=== PATIENT | male | born 1940 | race Two or more races ===

== ENCOUNTER 2018-06-14 07:32 | Inpatient (IN) | payer MEDICARE ==
[~2018-06-14] VITALS: Ht 160 cm; Wt 44.0 kg
[2018-06-14] VITALS (29 sets, daily range): BP systolic 81–142; BP diastolic 32–83
[2018-06-14] MEDS ORDERED: ALBUTEROL FS 2.5 MG/3 ML VIAL.NEB ONE ×3 (07:57→10:55)
[2018-06-14 07:59] LABS: BASOPHILS # (AUTO) 0.1 /CMM (0.0-0.2); BASOPHILS % (AUTO) 1.2 % (0.0-2.0); EOSINOPHILS % (AUTO) 1.4 % (0.0-6.0); LYMPHOCYTES # (AUTO) 2.3 /CMM (0.8-4.8); LYMPHOCYTES % (AUTO) 50.9 % (20.0-44.0); MEAN CORPUSCULAR HGB CONC 29 g/dl (31.0-36.0); MEAN CORPUSCULAR VOLUME 67 fL (80-96); MONOCYTES # (AUTO) 0.4 /CMM (0.1-1.30); MONOCYTES % (AUTO) 9.4 % (2.0-12.0); NEUTROPHILS # (AUTO) 1.7 /CMM (1.8-8.9); NEUTROPHILS % (AUTO) 37.1 % (43.0-81.0); PLATELET COUNT (AUTO) 174 /CMM (150-450); WHITE BLOOD COUNT (AUTO) 4.6 K/uL (4.3-11.0)
[2018-06-14] MEDS ORDERED: ALBUTEROL FS 2.5 MG/3 ML VIAL.NEB CONTNEB ONE (08:00)
[2018-06-14] MEDS ORDERED: methylPREDNISolone SOD SUCC 125 MG/2ML VIAL IV ONE (08:00)
--- NOTE | 2018-06-14 08:00 | NUR ---
patient BIBRA from home, due to shortness of breath, on breathing treatment upon arrival, Connected to the monitor and pulse ox. Dr. Sherman at bedside for eval. RT on site. Kept comfortable, will continue to monitor accordingly.
[2018-06-14 08:03] LABS: RED BLOOD CELL COUNT(AUTO) 1.94 MIL/uL (4.5-6.0)
[2018-06-14 08:06] LABS: HEMOGLOBIN 3.8 g/dL (13.5-17.5)
[2018-06-14 08:07] LABS: HEMATOCRIT 13 % (39-51)
[2018-06-14 08:11] LABS: CALCIUM, SERUM 8.2 mg/dL (8.5-10.1); CARBON DIOXIDE 23 mmol/L (21-32); CHLORIDE 105 mmol/L (98-107); GLUCOSE 140 mg/dL (74-106); POTASSIUM 3.3 mmol/L (3.5-5.1); SODIUM SERUM 139 mmol/L (136-145); UREA NITROGEN, BLOOD 11 mg/dL (7-18)
[2018-06-14] MEDS ORDERED: methylPREDNISolone SOD SUCC 125 MG/2ML VIAL ONE (08:11)
[2018-06-14 08:18] LABS: B-TYPE NATRIURETIC PEPTIDE 1418 PG/ML (0-125)
[2018-06-14 08:26] LABS: BASOPHILS # (AUTO) 0.1 /CMM (0.0-0.2); BASOPHILS % (AUTO) 1.4 % (0.0-2.0); EOSINOPHILS % (AUTO) 1.3 % (0.0-6.0); LYMPHOCYTES # (AUTO) 2.6 /CMM (0.8-4.8); LYMPHOCYTES % (AUTO) 54.1 % (20.0-44.0); MEAN CORPUSCULAR HGB CONC 29 g/dl (31.0-36.0); MEAN CORPUSCULAR VOLUME 67 fL (80-96); MONOCYTES # (AUTO) 0.4 /CMM (0.1-1.30); MONOCYTES % (AUTO) 7.4 % (2.0-12.0); NEUTROPHILS # (AUTO) 1.7 /CMM (1.8-8.9); NEUTROPHILS % (AUTO) 35.8 % (43.0-81.0); PLATELET COUNT (AUTO) 172 /CMM (150-450); WHITE BLOOD COUNT (AUTO) 4.8 K/uL (4.3-11.0)
[2018-06-14 08:27] LABS: RED BLOOD CELL COUNT(AUTO) 1.86 MIL/uL (4.5-6.0)
[2018-06-14 08:28] LABS: HEMOGLOBIN 3.6 g/dL (13.5-17.5)
[2018-06-14 08:29] LABS: HEMATOCRIT 13 % (39-51)
[2018-06-14 09:14] LABS: EOSINOPHILS % (MANUAL) 5 % (0-4); LYMPHOCYTES % (MANUAL) 18 % (16-48); MONOCYTES % (MANUAL) 18 % (0-11.0); MYELOCYTES % 1 % (0-0); NEUTROPHILS % (MANUAL) 58 (42-76)
[2018-06-14 09:18] LABS: ABG BASE EXCESS -6.4 mmol/L; ABG PH 7.386 (7.350-7.450); ABG PO2 194.7 mmHg (75.0-100.0); AaDO2 54.9 mmHg; COHb 1.9 % (0.5-1.5); MetHb 0.1 % (0.0-1.5); PEEP,BG 15 cm H2O; SITE, ABG Right Radial; VENT MODE, BG BIPAP
[2018-06-14] MEDS ORDERED: PANTOPRAZOLE 40 MG VIAL IV SCH ×2 (09:30→17:00)
[2018-06-14] MEDS ORDERED: PANTOPRAZOLE 40 MG VIAL ONE ×2 (09:33→10:33)
[2018-06-14] MEDS ORDERED: ALBUTEROL FS 2.5 MG/3 ML VIAL.NEB NEB STA (10:22)
[2018-06-14] MEDS ORDERED: ONDANSETRON HCL/PF 4 MG/2 ML VIAL IVP PRN (10:30)
[2018-06-14] MEDS ORDERED: PANTOPRAZOLE 80 MG in IV NS 0.9% 500 ML IV PRN (10:30)
[2018-06-14] MEDS ORDERED: IPRATROPIUM NEB FS 0.5 MG/2.5 ML AMPUL.NEB NEB ONE (10:30)
[2018-06-14] MEDS ORDERED: PANTOPRAZOLE 80 MG in IV NS 0.9% 100 ML IV ONE (10:30)
[2018-06-14] MEDS ORDERED: ACETAMINOPHEN 650 MG/SUPP.RECT RC PRN (10:30)
[2018-06-14] MEDS: POTASSIUM CL. PREMIX PERIPHER. 50 ML IV SCH ×4 (10:30→15:25)
--- NOTE | 2018-06-14 10:45 | NUR ---
1 unit packed red blood cell started transfusing
[2018-06-14] MEDS ORDERED: IPRATROPIUM NEB FS 0.5 MG/2.5 ML AMPUL.NEB ONE (10:55)
--- NOTE | 2018-06-14 11:30 | NUR ---
wheeled patient going to ICU accompanied by RT, PT on bipap, blood 1 unit PRBC infusing while transferring. Connected to the monitor and pulse ox. Vital signs within normal limit. Afsatu RN at bedside and endorsed.
--- NOTE | 2018-06-14 11:35 | NUR ---
BARYTES GRINDERTELEVISION CABINET FINISHER NOTES PT RECEIVED ON BIPAP. RT AT BEDSIDE. SETTINGS VERIFIED AN CHECKED FOR ACCURACY. PT SATING 98%.PT ADMITTED BY COMMISSIONED SALES ASSOCIATE ROXIE SIMS FOR ACUTE RESPIRATORY DISTRESS ALONG WITH ACUTE GI BLEED. PT NOTED WITH BLACK TARRY STOOLS X2 IN ER. NO NOTED AT TIME OF ADMISSION TO FLOOR. VSS AT THIS TIME WITH THE EXCEPTION OF PT'S HR WHICH REMAINS ELEVATED IN THE 130S. PT NOTED TO BE SINUS TACH ON THE MONITOR. IV TO RIGHT WRIST NOTED OT BE PATENT AND INTACT. NO REDNESS OR SIGNS OF INFILTRATION NOTED. PT RECEIVING 1UNIT PRBC WHICH WAS STARTED IN ER. ORDERS NOTED TO TRANSFUSE ANOTHER UNIT AFTER. VITALS: 97.6 AXILIARY 108/52 BP 130 P 23 RR 0/10 PAIN PT BELONGINGS VERIFIED AND PLACED AT BEDSIDE. PT ORIENTED TO ROOM HOWEVER IS VERY RESTLESS AND WITH POOR CONCENTRATION. BED IN LOW LOCKED POSITION SIDE RAILS UP X3 CALL LIGHT WITHIN REACH. COMMISSIONED SALES ASSOCIATE MADE AWARE OF ADMISSION TO UNIT. WILL BEGIN ADMISSION PROCESS AND AWAIT FOR FURTHER ORDERS
--- NOTE | 2018-06-14 12:08 | NUR ---
PLACED INTO NASAL CANNULA @ 2 LPM O2 FLOW. BIPAP ON STD BY @ BEDSIDE. SPO2 98% Addendum: 06/14/18 at 1241 by HEATH STARR RT Amended: Links added.
--- NOTE | 2018-06-14 13:30 | NUR ---
BODY DIE MAKER NOTES: BLOOD TRANSFUSION (2) PT S/P 2 UNIT PRBC. NO TRANSFUSION REACTIONS NOTED. BLOOD RAPIDLY INFUSED PER PUBLISHING AGENT ORDER. PT SET TO RECEIVE ANOTHER RAPIDLY INFUSED 1 UNIT AFTER H/H IS REDRAWN
[2018-06-14] MEDS ORDERED: POTASSIUM CHLORIDE 10 MEQ/50 ML PREMIXED IVPB FOR PERIPHERAL LINE IV ONE (14:00)
[2018-06-14] MEDS ORDERED: NOREPINEPHRINE 8 MG in IV D5W 500 ML IV PRN (14:00)
[2018-06-14] MEDS ORDERED: IV NS 0.9% 1,000 ML BAG IV PRN (14:00)
[2018-06-14] MEDS ORDERED: IV NS 0.9% 1,000 ML IV PRN (14:00)
--- NOTE | 2018-06-14 14:13 | NUR ---
PT. PLACED INTO VENTI MASK @ 26% DUE TO MOUTH BREATHING. SPO2 96 - 98% PT. KEEPS ON MOVING Addendum: 06/14/18 at 1415 by HEATH STARR RT Amended: Links added.
[2018-06-14 14:20] LABS: HEMOGLOBIN 7.1 g/dL (13.5-17.5)
--- NOTE | 2018-06-14 14:30 | NUR ---
LAST TURNER NOTES: MD ROUNDING DR DEUTSCH AT BEDSIDE AND UPDATED ON PT'S RECENT LABS AND TARRY STOOLS WITNESS IN ER. PER MD, PT WILL BE SCHEDULED FOR EGD TOMORROW. FURTHER ORDERS OBTAINED TO BEGIN PT ON A CLEAR LIQUID DIET, KEEP NPO POST MIDNIGHT, AND Q 6HR H/H FOLLOWING TRANSFUSION
[2018-06-14] MEDS ORDERED: LORAZEPAM INJ 2 MG/ML VIAL IV ONE (15:30)
--- NOTE | 2018-06-14 15:30 | NUR ---
TELEPHONE CLAIMS REPRESENTATIVE NOTES: RESOLUTION MANAGER ROUNDING ROXIE SIMS AT BEDSIDE AND UPDATED ON PT'S CONDITION, CURRENT H/H POST 2UNITS OF PRBC, PT'S BEHAVIOR AND RECOMMENDATIONS BY DR DEUTSCH. RESOLUTION MANAGER ALSO MADE AWARE THAT SEVERAL ATTEMPTS WERE TAKEN TO INSERT NG TUBE HOWEVER PT WENT INTO REPARATORY DISTRESS, BECAME AGITATED AND REFUSING INSERTION. VERBAL ORDERS OBTAINED FOR: ATIVAN 0.5MG IV ONE TIME, DECREASE IV FLUIDS TO 100ML/HR, AND TRANSFUSE 1MORE UNIT OF PRBC WILL CARRY OUT ORDERS AND CONTINUE TO UPDATE RESOLUTION MANAGER
[2018-06-14] MEDS: IV NS 0.9% 1,000 ML IV SCH (15:58)
[2018-06-14] MEDS: PANTOPRAZOLE 40 MG VIAL IV SCH (16:01)
--- NOTE | 2018-06-14 17:10 | NUR ---
REHABILITATION THERAPY AIDE NOTES: CRITICAL LAB REPORTING 1710 PT HAS A CRITICAL TROPONIN OF 4.239 AND A CRITICAL LACTIC ACID OF 8.3. ROXIE SHEA NOTIFIED. TELEPHONE ORDERS TO STAT EKG, BOLUS OF 2L NS, CHANGE IV FLUID RATE TO 150ML/HR, URINE CX, AND A SET OF BLOOD CX. 1720 RESULTS OF EKG RELAYED TO BUTTONHOLER. NO STATES THAT SHE WILL CONSULT DR. HUITRON. PT DENIES ANY CHEST PAIN
[2018-06-14] MEDS ORDERED: IV NS 0.9% 2,000 ML IV ONE (17:30)
--- NOTE | 2018-06-14 17:51 | NUR ---
MARKETING SERVICES REP NOTES: CARDIO F/U CALL RECEIVED FROM PATRICIA FAUSTIN WHO SPOKE TO DR. HUITRON IN REGARDS TO EKG AND ELEVATED TROPONIN. PER AUDIOLOGIST, STATES THAT PT IS NOT A CANDIDATE FOR ANY PERCUTANEOUS PROCEDURES NOR A CANDIDATE FOR ANTICOAGULATION THERAPY DUE TO GI BLEED. NO NEW ORDERS GIVEN. PT DENIES ANY CHEST PAIN
--- NOTE | 2018-06-14 18:57 | NUR ---
GASTROINTESTINAL TECHNICIAN NOTES: EGD TELEPHONE CONSENT' PT SON CEDRIC CALLED IN REGARD TO EGD PROCEDURE PLANNED FOR TOMORROW. SON MQADE AWARE OF PT'S CURRENT CONDITION. TELEPHONE CONSENT OBTAINED FOR THE EGD PROCEDURE ITSELF HOWEVER NOT FOR THE ANESTHESIA. PT'S SON WISHES TO SPEAK TO ANESTHESIOLOGIST IN REGARDS TO PROCEDURE.
[2018-06-14 19:03] LABS: ABG BASE EXCESS -11.9 mmol/L; ABG OXYGEN SATURATION 71.9 % (92.0-98.5); ABG PCO2 41.8 mmHg (35.0-45.0); ABG PH 7.189 (7.350-7.450); ABG PO2 43.5 mmHg (75.0-100.0); AaDO2 106.8 mmHg; COHb 0.6 % (0.5-1.5); MetHb 0.8 % (0.0-1.5); O2Hb 70.9 % (94.0-97.0); SITE, ABG Right Radial; VENT MODE, BG VENTURI MASK 28%
--- NOTE | 2018-06-14 19:07 | NUR ---
RECEIVED PATIENT ON VENTURI MASK AT 28% ON 6L. PT LOOKED AGITATED AND HAD LABORED BREATHING. ABG WAS DONE AT THIS TIME AND POST ABG RESULTS PATIENT WAS PLACED BACK ON BIPAP 15/5 RATE 16 FIO2 60%. PT SP02 IS NOW AT 96%. MADELEINE STEEN NOTIFIED. WILL CONT TO MONITOR PT. Addendum: 06/14/18 at 1909 by BENY GARCIA RT Amended: Links added.
--- NOTE | 2018-06-14 19:09 | NUR ---
RN ADVISED THAT ECHO TEST CANNOT BE DONE AT THE MOMENT PATIENT IS RESTLESS. SOME PROCEDURE TO BE DONE ON PT PER RN.
--- NOTE | 2018-06-14 19:23 | NUR ---
TELEMETRY REGISTERED NURSE NOTES: MD NOTIFICATION (DR. DEGROOT) DR DEGROOT CALLED IN REGARDS TO ABG RESULTS AND PT'S INCREASED RESTLESSNESS. PER MD, "PT MAY BE IN FLUID OVERLOAD, ORDER 20MG OF LASIX IV, CONTINUE TO MONITOR HIM ON BIPAP, IF RESPIRATORY STATUS IMPROVES, THEN HE MAY BE TAKEN OFF AND PLACED ON NC"
[2018-06-14] MEDS ORDERED: FUROSEMIDE 20 MG/2 ML VIAL IV ONE (19:30)
--- NOTE | 2018-06-14 19:45 | NUR ---
HOT MILL OPERATOR NOTE RECEIVED PT AWAKE AND RESTLESS. NO C/O PAIN OR DISTRESS NOTED. ON BIPAP WITH SETTINGS WELL TOLERATED AND SATURATING 100%. HOB ELEVATED AND ON ASPIRATION PRECAUTIONS. BREATHING UNLABORED. TELE-ST 124. IVS IN PLACE,PATENT AND FLUSHING WELL. SOLOMON CATHETER IN PLACE AND DRAINING BY GRAVITY. WILL CONTINUE TO MONITOR.
--- NOTE | 2018-06-14 19:58 | NUR ---
FINANCIAL RETIREMENT PLAN SPECIALIST CLOSING NOTES PT PLACED BACK ON BIPAP (15/5, RATE 16, FIO2 100%). PT LESS RESTLESS AT THIS TIME AND SATANG AT 100%. 20MG OF LASIX GIVEN ORDERED. SECOND 1L BOLUS STOPPED DUE TO OVERLOAD AND LASIX ADMINISTRATION. PT RECEIVED A TOLUOL OF 3UNITS PRCS, AND TOLERATED WELL. NO TRANSFUSION REACTIONS NOTED. VSS AT THIS TIME. INVASIVE LINES REMAIN PATENT AND INTACT. PT REMAINS SINUS TACH ON MONITOR. NO COMPLAINTS OF CHEST PAIN, RECEIVING RN MADE AWARE OF PT'S SON WHO WOULD LIKE TO SPEAK TO ANESTHESIOLOGIST IN REGARDS TO EGD PROCEDURE ALONG WITH ORDERS FROM THE CLINICAL TRIALS NURSE. REPEAT H/H TAKEN AFTER THIRD INFUSION. RESULTS PENDING. ENDORSED TO NIGHTSHIFT RN FOR MELLISSA
[2018-06-14 20:37] LABS: BILIRUBIN,DIRECT 0.3 mg/dL (0.0-0.2); BILIRUBIN,TOTAL 0.7 mg/dL (0.2-1.0)
--- NOTE | 2018-06-14 21:00 | NUR ---
FIRER ELECTRIC LOCOMOTIVE NOTE LICENSED STAFF MFT RAFA MORA DNP AT BEDSIDE.
--- NOTE | 2018-06-14 23:15 | NUR ---
DUPLICATE MAKER NOTE NOTIFIED CONTINUOUS IMPROVEMENT DIRECTOR ABBY FOR CRITICAL LAB TROP 29.369 WITH NO NEW ORDERS AT THIS TIME. WILL CONTINUE TO MONITOR.
[2018-06-14 23:27] LABS: HEMOGLOBIN 8.8 g/dL (13.5-17.5)
[2018-06-15] VITALS (44 sets, daily range): BP systolic 93–138; BP diastolic 33–82
[2018-06-15] MEDS: IV NS 0.9% 1,000 ML IV SCH (03:00)
[2018-06-15 04:35] LABS: BASOPHILS % (AUTO) 0.1 % (0.0-2.0); HEMATOCRIT 27 % (39-51); HEMOGLOBIN 8.7 g/dL (13.5-17.5); LYMPHOCYTES # (AUTO) 0.2 /CMM (0.8-4.8); LYMPHOCYTES % (AUTO) 1.6 % (20.0-44.0); MEAN CORPUSCULAR HGB CONC 32 g/dl (31.0-36.0); MEAN CORPUSCULAR VOLUME 75 fL (80-96); MONOCYTES # (AUTO) 1.2 /CMM (0.1-1.30); MONOCYTES % (AUTO) 12.3 % (2.0-12.0); NEUTROPHILS # (AUTO) 8.3 /CMM (1.8-8.9); PLATELET COUNT (AUTO) 155 /CMM (150-450); RED BLOOD CELL COUNT(AUTO) 3.57 MIL/uL (4.5-6.0); WHITE BLOOD COUNT (AUTO) 9.7 K/uL (4.3-11.0)
[2018-06-15 04:53] LABS: ALANINE AMINOTRANSFERASE 13 U/L (12-78); ALBUMIN 2.9 g/dL (3.4-5.0); ALKALINE PHOSPHATASE 71 U/L (46-116); ASPARTATE AMINOTRANSFERASE 62 U/L (15-37); BILIRUBIN,TOTAL 0.6 mg/dL (0.2-1.0); CALCIUM, SERUM 7.2 mg/dL (8.5-10.1); CARBON DIOXIDE 22 mmol/L (21-32); CHLORIDE 108 mmol/L (98-107); GLUCOSE 292 mg/dL (74-106); PHOSPHORUS 2.7 mg/dL (2.5-4.9); POTASSIUM 3.9 mmol/L (3.5-5.1); SODIUM SERUM 140 mmol/L (136-145); UREA NITROGEN, BLOOD 16 mg/dL (7-18)
[2018-06-15 04:54] LABS: MAGNESIUM 1.8 mg/dL (1.8-2.4); TOTAL PROTEIN, SERUM 5.9 g/dL (6.4-8.2)
[2018-06-15 05:16] LABS: CHOLESTEROL 126 mg/dL (<200); HDL CHOLESTEROL 56 mg/dL (40-60); LDL 60 mg/dL (0-99); THYROID STIMULATING HORMONE 0.372 uIU/mL (0.358-3.74); TRIGLYCERIDES 59 mg/dL (30-150)
[2018-06-15] MEDS: FUROSEMIDE 40 MG/4 ML VIAL IV SCH ×3 (08:28→16:39)
[2018-06-15] MEDS: POTASSIUM CL. PREMIX PERIPHER. 50 ML IV SCH ×4 (08:29→11:59)
[2018-06-15] MEDS: PANTOPRAZOLE 40 MG VIAL IV SCH ×2 (08:29→16:39)
[2018-06-15 08:37] LABS: ABG BASE EXCESS -7.9 mmol/L; ABG OXYGEN SATURATION 92.1 % (92.0-98.5); ABG PCO2 35.1 mmHg (35.0-45.0); ABG PH 7.316 (7.350-7.450); ABG PO2 69.6 mmHg (75.0-100.0); AaDO2 261.9 mmHg; COHb 0.4 % (0.5-1.5); MetHb 0.6 % (0.0-1.5); O2Hb 91.2 % (94.0-97.0); SITE, ABG Right Brachial; VENT MODE, BG SIMPLE MASK
--- NOTE | 2018-06-15 09:06 | NUR ---
received pt from material handler 1st shift, s/p GI bleed, NSTEMI, alert, follows commands, ST, off of bipap, on simple mask now, sat well, lungs diminished, pulmonary vascular congestion on xray, no edema, NPO, f/c good output, v/s stable, no pain, one BM, no blood noted. Unstable for EGD today per pulmonology and cardio.
--- NOTE | 2018-06-15 09:24 | NUR ---
pt is back to bipap because of respiratory distress, Dr Butts at the bedside.
--- NOTE | 2018-06-15 11:11 | NUR ---
SW left a message for pt's son Mihai requesting a call back in regards to pt's home situation.
[2018-06-15] MEDS ORDERED: NOREPINEPHRINE 8 MG in IV D5W 500 ML IV PRN (11:30)
--- NOTE | 2018-06-15 12:44 | NUR ---
pt is resting in the bed, alert, follows commands, on bipap, sat well, v/s stable, no pain, pt turned and repositioned q2hrs.
[2018-06-15 13:00] LABS: HEMOGLOBIN 9.2 g/dL (13.5-17.5)
[2018-06-15] MEDS: SOD FERRIC GLUC 125 MG in IV NS 0.9% 100 ML IV SCH (13:28)
--- NOTE | 2018-06-15 17:01 | NUR ---
pt is resting in the bed, alert, follows commands, ST, good urine output, v/s stable, no pain, pt cleaned, changed and repositioned q2hrs.
--- NOTE | 2018-06-15 19:30 | NUR ---
CREDIT VERIFICATION CLERK NOTE RECEIVED PT ON SIMPLE MASK 8L OF O2 AND TOLERATING WELL. PT AWAKE AND MORE ALERT. FOLLOWS SIMPLE COMMANDS. NO C/O PAIN NOTED. BREATHING UNLABORED. HOB ELEVATED. TELE- SR 90'S. REMAINS NPO. NO ACTIVE BLEEDING NOTED. CALL LIGHT WITHIN REACH. WILL CONTINUE TO MONITOR.
--- NOTE | 2018-06-15 19:55 | NUR ---
RCVD PT ON 8L SIMPLE MASK. PT IS AWAKE AND ALERT. PLACED PT ON NOC BIPAP PER MD'S ORDER. BIPAP PLUGGED INTO RED OUTLET, ALARMS ON AND AUDIBLE. NO RESPIRATORY DISTRESS NOTED AT THIS TIME. WILL CONTINUE TO MONITOR THE PT.
--- NOTE | 2018-06-15 20:15 | NUR ---
OIL RIG DRILLER NOTE RT AT BEDSIDE. PT PLACED ON NOCTURNAL BIPAP. WILL MONITOR.
--- NOTE | 2018-06-15 20:40 | NUR ---
Met with patient at bedside and spoke with kareen Holm on the phone [phone]. Patient resides with handicapped Joann and son in a single level dwelling. Patient is not ambulatory, he is confined to wheelchair most of the time. He requires max to total assist with adl's. His son Mihai is the primary caregiver and IHSS provider. Patient is on oxygen at home but his portable O2 is empty and not working. Available DME: wheelchair, walker, home O2; he is currently on service with homehealth - son will bring in the [facility] contact info in am. Patient pcp is Dr. Cruz in [place], patient has Medicare/Medical per family. Discussed dc planning options, kareen Holm does not want SNF placement. he want to take patient home when discharge. Addendum: 06/15/18 at 204 by ANAMIKA PRICE RN Amended: Links added.
[2018-06-16] VITALS (39 sets, daily range): BP systolic 81–133; BP diastolic 31–68
[2018-06-16 04:57] LABS: BASOPHILS % (AUTO) 0.1 % (0.0-2.0); EOSINOPHILS % (AUTO) 0.2 % (0.0-6.0); HEMATOCRIT 27 % (39-51); HEMOGLOBIN 8.5 g/dL (13.5-17.5); LYMPHOCYTES # (AUTO) 0.2 /CMM (0.8-4.8); LYMPHOCYTES % (AUTO) 1.7 % (20.0-44.0); MEAN CORPUSCULAR HGB CONC 32 g/dl (31.0-36.0); MEAN CORPUSCULAR VOLUME 76 fL (80-96); MONOCYTES % (AUTO) 7.5 % (2.0-12.0); NEUTROPHILS # (AUTO) 12.7 /CMM (1.8-8.9); NEUTROPHILS % (AUTO) 90.5 % (43.0-81.0); PLATELET COUNT (AUTO) 139 /CMM (150-450); RED BLOOD CELL COUNT(AUTO) 3.54 MIL/uL (4.5-6.0)
[2018-06-16 05:11] LABS: ALANINE AMINOTRANSFERASE 14 U/L (12-78); ALBUMIN 2.9 g/dL (3.4-5.0); ALKALINE PHOSPHATASE 71 U/L (46-116); ASPARTATE AMINOTRANSFERASE 44 U/L (15-37); BILIRUBIN,TOTAL 0.6 mg/dL (0.2-1.0); CALCIUM, SERUM 7.5 mg/dL (8.5-10.1); CARBON DIOXIDE 31 mmol/L (21-32); CHLORIDE 107 mmol/L (98-107); CREATININE 0.8 mg/dL (0.6-1.3); GLUCOSE 77 mg/dL (74-106); PHOSPHORUS 2.2 mg/dL (2.5-4.9); SODIUM SERUM 142 mmol/L (136-145); UREA NITROGEN, BLOOD 14 mg/dL (7-18)
--- NOTE | 2018-06-16 06:50 | NUR ---
SPEECH LANGUAGE ASSISTANT NOTE PT REMAINED STABLE DURING SHIFT. NO ACUTE DISTRESS NOTED. REMAINS ON BIPAP AT THIS TIME. REPOSITIONED Q2H. ALL NEEDS ATTENDED TO PROMPTLY. KEPT CLEAN AND DRY. WILL ENDORSE TO NEXT SHIFT FOR CONTINUITY OF CARE.
[2018-06-16] MEDS ORDERED: POTASSIUM PHOSPHATE MM 15 MMOL in IV D5W 250 ML IV SCH (07:30)
[2018-06-16] MEDS: PANTOPRAZOLE 40 MG VIAL IV SCH ×2 (08:53→16:44)
[2018-06-16] MEDS: POTASSIUM PHOSPHATE MM 7.5 MMOL in IV D5W 100 ML IV SCH ×2 (08:54→12:11)
[2018-06-16] MEDS: FUROSEMIDE 40 MG/4 ML VIAL IV SCH ×2 (09:06→12:11)
[2018-06-16 09:54] LABS: ABG BASE EXCESS 3.9 mmol/L; ABG OXYGEN SATURATION 91.3 % (92.0-98.5); ABG PCO2 39.7 mmHg (35.0-45.0); ABG PH 7.465 (7.350-7.450); ABG PO2 61.1 mmHg (75.0-100.0); AaDO2 120.6 mmHg; COHb 0.3 % (0.5-1.5); MetHb 0.8 % (0.0-1.5); O2Hb 90.3 % (94.0-97.0); SITE, ABG Left Radial; VENT MODE, BG Nasal Cannula
--- NOTE | 2018-06-16 11:00 | NUR ---
RN NOTE DR MEDINA NOTIFIED ABOUT ABG RESULTS, NO NEW ORDERS. WILL MONITOR.
[2018-06-16 12:24] LABS: HEMOGLOBIN 8.7 g/dL (13.5-17.5)
--- NOTE | 2018-06-16 14:25 | NUR ---
RN NOTE SPOKE WITH DR DEUTSCH GI , AWARE ABOUT H/H TRENDS, PER DOCTOR NO EGD AT THIS TIME. OKAY TO START FEEDING THE PT. WILL START AT CLEAR LIQUID DIET AND ADVANCE TOLERATED.
[2018-06-16] MEDS: SOD FERRIC GLUC 125 MG in IV NS 0.9% 100 ML IV SCH (14:46)
--- NOTE | 2018-06-16 15:37 | NUR ---
RT RECD PT ON BIPAP, PLACED ON NC 3L AT 0830 LOC WELL. ABG DONE REMAINED ON NC THROUGHOUT SHIFT
--- NOTE | 2018-06-16 15:57 | NUR ---
RN NOTE PT HAD A CLEAR LIQUID DIET, DURING PO INTAKE STARTED TO HAVE HIGH HEART RATE UP TO 160S-170S, BUT PT DID NOT CO ABOUT CHEST PAIN OR SOB. WAS ABLE TO TOLERATE PO INTAKE WITHOUT PROBLEMS. AFTER MEAL INTAKE, PT REMAINED TACHYCARDIA, AFIB WITH RVR 150. BP 94/63MMHG, RR 26, SATURATION 95%. DR HUITRON CONTACTED AND GOT AN ORDER FOR AMIODARONE BOLUS AND DRIP PER PROTOCOL. Addendum: 06/16/18 at 1602 by EVI JARA RN WILL FOLLOW THROUGH AND MONITOR.
[2018-06-16] MEDS ORDERED: AMIODARONE 900 MG in IV D5W 482 ML IV PRN (16:00)
[2018-06-16] MEDS ORDERED: AMIODARONE 150 MG in IV D5W 100 ML IV ONE (16:00)
--- NOTE | 2018-06-16 19:30 | NUR ---
COMMAND AND CONTROL SPECIALIST: RECEIVED PT ALERT AND AWAKE. ABLE TO TALK AND MAKE NEEDS KNOWN. ON 3L 02 VIA NC WT NO ACUTE DISTRESS. NO C/O PAIN OR EVIDENCE OF DISCOMFORT. IN AND OUT OF A. FIB ON TELE. CONTINUE ON AMIODARONE AT 1MG/MIN. NO S/S OF IV INFILTRATION. AFEBRILE. BP IN LOW 90s. F/C PATENT AND INTACT DRAINING YELLOW URINE. HOB AT 30 DEGREES. BED LOCKED, LOW POSITION AND SR UP X2. CALL LIGHT KEPT WITHIN REACH. WILL CONTINUE TO MONITOR.
--- NOTE | 2018-06-16 20:03 | NUR ---
RN NOTE PT HAD AMIODARONE DRIP , HR LOWERED TO 108, SBP SUSTAINED IN 90S. MEDS GIVEN PRESCRIBED, NEED MET, SAFETY MEASURES IN PLACE, WILL ENDORSE TO OTR VAN CDL TRUCK DRIVER.
--- NOTE | 2018-06-16 22:45 | NUR ---
CIRCUIT BOARD ASSEMBLER: AMIODARONE DRIP CHANGED RATE TO 0.5MG/MIN.
[2018-06-17] VITALS (25 sets, daily range): BP systolic 85–108; BP diastolic 44–74
--- NOTE | 2018-06-17 00:40 | NUR ---
BRUSH FINISHER: PT CONVERTED TO SR WT OCCASIONAL PACs. WILL CONTINUE TO MONITOR.
[2018-06-17 05:13] LABS: HEMATOCRIT 27 % (39-51); HEMOGLOBIN 8.6 g/dL (13.5-17.5); MEAN CORPUSCULAR HGB CONC 32 g/dl (31.0-36.0); MEAN CORPUSCULAR VOLUME 75 fL (80-96); PLATELET COUNT (AUTO) 148 /CMM (150-450); RED BLOOD CELL COUNT(AUTO) 3.58 MIL/uL (4.5-6.0)
[2018-06-17 05:24] LABS: ALANINE AMINOTRANSFERASE 21 U/L (12-78); ALBUMIN 2.8 g/dL (3.4-5.0); ALKALINE PHOSPHATASE 65 U/L (46-116); ASPARTATE AMINOTRANSFERASE 34 U/L (15-37); BILIRUBIN,TOTAL 0.6 mg/dL (0.2-1.0); CALCIUM, SERUM 7.6 mg/dL (8.5-10.1); CARBON DIOXIDE 33 mmol/L (21-32); CHLORIDE 101 mmol/L (98-107); CREATININE 0.8 mg/dL (0.6-1.3); GLUCOSE 86 mg/dL (74-106); PHOSPHORUS 1.5 mg/dL (2.5-4.9); POTASSIUM 3.1 mmol/L (3.5-5.1); SODIUM SERUM 138 mmol/L (136-145); TOTAL PROTEIN, SERUM 5.8 g/dL (6.4-8.2); UREA NITROGEN, BLOOD 12 mg/dL (7-18)
--- NOTE | 2018-06-17 05:55 | NUR ---
SOCIAL PSYCHOLOGIST: CONTINUE ON AMIODARONE DRIP AT 0.5 MG/MIN WT SR ON MARITIME PILOT. NO ACTIVE BLEEDING DURING THE SHIFT. REMAINED ALERT AND AWAKE. ABLE TO MAKE NEEDS KNOWN. DESATURATES IN THE 80s WHEN OFF NASAL CANNULA. PT TEACHING DONE TO KEEP NC ON AND VERBALIZED UNDERSTANDING. SAFETY PRECAUTION NOTED. TROPONIN TRENDING DOWN TO 5.61 FROM 11.575.
[2018-06-17 05:59] LABS: EOSINOPHILS % (MANUAL) 1 % (0-4); LYMPHOCYTES % (MANUAL) 11 % (16-48); MONOCYTES % (MANUAL) 8 % (0-11.0); NEUTROPHILS % (MANUAL) 80 (42-76)
--- NOTE | 2018-06-17 07:40 | NUR ---
PROTOTYPE MACHINE OPERATOR: pt.is A/Ox2, rest, no c/o now, SR now, on Amiodarone 0.5 gtt now, SBP around 90 by report, no bleeding by report, on 3L n/c, O2sat. over 94%, no SOB, R.f/a PIVL: painful, unable to NS flush, order for sputum/cx, notified RT, was in room/updated/see new orders, incl. K, Phos replacement
[2018-06-17] MEDS: FUROSEMIDE 40 MG/4 ML VIAL IV SCH ×2 (08:18→12:54)
[2018-06-17] MEDS: PANTOPRAZOLE 40 MG VIAL IV SCH ×2 (08:18→17:01)
[2018-06-17] MEDS: POTASSIUM CHLORIDE 20 MEQ TAB.PRT.SR PO SCH ×3 (08:19→10:25)
[2018-06-17] MEDS: NEUTRA PHOS 1 POWD.PACKET PO SCH ×2 (08:19→16:29)
--- NOTE | 2018-06-17 11:19 | NUR ---
HIGH SCHOOL CHEMISTRY TEACHER: continue Amiodarone 0.5 mg/m gtt until 16.45, spoke with pharmacy, SR, c/o L.foot pain 3-06/16, reapplied DVT pressure e.stockings, assessed for pain real location, no calfs/legs pain by Soumya calvin, pt.confirmed L.foot pain and R.foot little pain, pt.is ok to continue DVT prev.stockings, will notify Adithya KINNEYPIVL dressing re endorsed, ok for ND flushing now, no pain, no infiltrated
--- NOTE | 2018-06-17 11:20 | NUR ---
RADIOLOGIST PHYSICIAN: updated with all above, ok to transfer pt.
--- NOTE | 2018-06-17 12:20 | NUR ---
NEONATOLOGIST: PATRICIA Williamson is in room, updated with pt.current condition, VS, I/O, Amiodarone gtt, c/o, labs, meds, ok to transfer pt after drip
[2018-06-17 12:57] LABS: HEMOGLOBIN 9.3 g/dL (13.5-17.5)
--- NOTE | 2018-06-17 13:10 | NUR ---
SECURITY TEST ENGINEER: is in room, updated with pt.current condition, VS, meds, labs, H/H, I/O, no bloody stool by report, ok to advance diet to soft mech diet
[2018-06-17] MEDS: SOD FERRIC GLUC 125 MG in IV NS 0.9% 100 ML IV SCH (14:25)
[2018-06-17] MEDS: AMIODARONE HCL 200 MG TABLET PO SCH (17:02)
--- NOTE | 2018-06-17 18:19 | NUR ---
TRANSMISSION ENGINEER: pt.is A/Ox3, no pain, no c/o, SR, Amio gtt done, SBP 90-95, O2sat. over 94%, all PM,skin care done
--- NOTE | 2018-06-17 18:52 | NUR ---
PT AWAKE AND ALERT TOLERATES ON NASAL CANNULA. PT STATED THAT HE HAS NO PROBLEM WITH BREATHING AND DOES NOT NEED BIPAP.
[2018-06-18] VITALS (9 sets, daily range): BP systolic 90–120; BP diastolic 50–86
[2018-06-18 04:38] LABS: BASOPHILS # (AUTO) 0.1 /CMM (0.0-0.2); BASOPHILS % (AUTO) 0.9 % (0.0-2.0); EOSINOPHILS % (AUTO) 1.6 % (0.0-6.0); HEMATOCRIT 30 % (39-51); HEMOGLOBIN 9.5 g/dL (13.5-17.5); LYMPHOCYTES # (AUTO) 1.4 /CMM (0.8-4.8); LYMPHOCYTES % (AUTO) 13.7 % (20.0-44.0); MEAN CORPUSCULAR HGB CONC 32 g/dl (31.0-36.0); MEAN CORPUSCULAR VOLUME 77 fL (80-96); MONOCYTES # (AUTO) 1.1 /CMM (0.1-1.30); MONOCYTES % (AUTO) 10.7 % (2.0-12.0); NEUTROPHILS # (AUTO) 7.5 /CMM (1.8-8.9); NEUTROPHILS % (AUTO) 73.1 % (43.0-81.0); PLATELET COUNT (AUTO) 167 /CMM (150-450); RED BLOOD CELL COUNT(AUTO) 3.88 MIL/uL (4.5-6.0); WHITE BLOOD COUNT (AUTO) 10.3 K/uL (4.3-11.0)
[2018-06-18 04:48] LABS: ALANINE AMINOTRANSFERASE 20 U/L (12-78); ALBUMIN 2.9 g/dL (3.4-5.0); ALKALINE PHOSPHATASE 71 U/L (46-116); ASPARTATE AMINOTRANSFERASE 26 U/L (15-37); BILIRUBIN,TOTAL 0.5 mg/dL (0.2-1.0); CALCIUM, SERUM 7.8 mg/dL (8.5-10.1); CARBON DIOXIDE 33 mmol/L (21-32); CHLORIDE 100 mmol/L (98-107); CREATININE 0.9 mg/dL (0.6-1.3); GLUCOSE 92 mg/dL (74-106); MAGNESIUM 1.7 mg/dL (1.8-2.4); PHOSPHORUS 2.3 mg/dL (2.5-4.9); POTASSIUM 3.4 mmol/L (3.5-5.1); SODIUM SERUM 137 mmol/L (136-145); TOTAL PROTEIN, SERUM 6.2 g/dL (6.4-8.2); UREA NITROGEN, BLOOD 9 mg/dL (7-18)
--- NOTE | 2018-06-18 05:06 | NUR ---
pt is alert and oriented times three sl anxious at times overall appearances fair no skin break down has a todd cath patent and draining qs cl danielle urine was incont times one of mod.size formed stool has a left ac hl #20 no ivf is on 3L via nc sating 95-99% lungs sound sl rhonchi does cough but no sputum noted is sr on the monitor pt is being transfer to room 107 report was given to Marija SALVADOR all questions answered pt conditon remains stable
--- NOTE | 2018-06-18 06:09 | NUR ---
pt was transfer to [facility] without incident and pt was given all his personal belonging given to pt
[2018-06-18] MEDS: NEUTRA PHOS 1 POWD.PACKET PO SCH ×2 (08:40→16:22)
[2018-06-18] MEDS: Magnesium 1GM/D5W 100ML PREMIX 100 ML IV SCH ×2 (08:40→09:44)
[2018-06-18] MEDS: PANTOPRAZOLE 40 MG VIAL IV SCH ×2 (08:41→16:22)
[2018-06-18] MEDS: AMIODARONE HCL 200 MG TABLET PO SCH ×2 (08:41→16:22)
[2018-06-18] MEDS ORDERED: POTASSIUM CHLORIDE 20 MEQ TAB.PRT.SR PO SCH (09:00)
[2018-06-18] MEDS ORDERED: IOHEXOL-350 100 ML VIAL IV ONE (11:48)
[2018-06-18] MEDS ORDERED: IV NS 0.9% 250 ML IV ONE (11:48)
[2018-06-18] MEDS ORDERED: CT SWABBABLE VALVE TRANS SET 1 EA INFUS.SET MC ONE (11:48)
[2018-06-18] MEDS ORDERED: METOPROLOL TARTRATE INJ 5 MG/5 ML AMPUL ONE ×2 (11:49→12:25)
[2018-06-18 12:01] LABS: HEMOGLOBIN 9.2 g/dL (13.5-17.5)
--- NOTE | 2018-06-18 12:51 | NUR ---
Pt back to his room s/p CTA.
[2018-06-18] MEDS: SOD FERRIC GLUC 125 MG in IV NS 0.9% 100 ML IV SCH (14:22)
--- NOTE | 2018-06-18 18:45 | NUR ---
RN CLOSING NOTES: No significant changes noted w/in shift. Pt remains A/O x 2-3, denies any pain/ discomfort. No SOB while on NC at 3lpm but w/ strong productive cough. IV line access kept patent & intact w/ no s/sx of infection/infiltration noted. FC kept patent & intact draining to BSB. Pt independent w/ bed mobility. Safety precaution kept in place at all times w/ bed in lowest & locked pos. Call light placed w/in reach. Will endorse to PM RN for MELLISSA.
--- NOTE | 2018-06-18 19:15 | NUR ---
MS RN OPENING NOTES PATIENT ALERT AND ORIENTED X 2-3. DENIES ANY PAIN OR DISCOMFORT AT THIS TIME. ON NC AT 3LPM TOLERATING WELL, NO SOB NOTED, RR EVEN AND UNLABORED. IV LINE LEFT AC 20G TKO RUNNING AT 3ML/HR, NO SIGN OF INFILTRATION NOTED, SITE CDI. SOLOMON CATH DRAINING WELL TO BSB. PT INDEPENDENT WITH BED MOBILITY. SAFETY PRECAUTIONS IN PLACE. BED LOCKED AND IN LOWEST POSITION, CALL LIGHT WITHIN REACH, BED ALARM ON. WILL CONT TO MONITOR PATIENT.
--- NOTE | 2018-06-19 03:30 | NUR ---
MS RN NOTES PATIENT REFUSED DVT PUMPS DESPITE EDUCATION GIVEN REGARDING DVT PUMPS. PATIENT STATED "THEY ARE UNCOMFORTABLE AND WON'T MAKE ME SLEEP" WILL REMOVE DVT PUMPS FOR NOW AND WILL ENDORSE TO AM NURSE.
[2018-06-19 04:00] VITALS: BP 92/48
[2018-06-19 04:01] VITALS: BP 92/48
[2018-06-19 06:30] LABS: CALCIUM, SERUM 8.1 mg/dL (8.5-10.1); CARBON DIOXIDE 28 mmol/L (21-32); CHLORIDE 101 mmol/L (98-107); CREATININE 0.8 mg/dL (0.6-1.3); GLUCOSE 89 mg/dL (74-106); POTASSIUM 4.5 mmol/L (3.5-5.1); SODIUM SERUM 136 mmol/L (136-145); UREA NITROGEN, BLOOD 10 mg/dL (7-18)
--- NOTE | 2018-06-19 06:44 | NUR ---
MS RN CLOSING NOTES PATIENT SLEEPING IN BED, BUT EASY TO AROUSE. ALERT AND ORIENTED X 2-3. DENIES ANY PAIN OR DISCOMFORT AT THIS TIME. ON NC AT 3LPM TOLERATING WELL, NO SOB NOTED, RR EVEN AND UNLABORED. IV LINE LEFT AC 20G NS RUNNING AT 3ML/HR TKO, NO SIGN OF INFILTRATION NOTED, SITE CDI. SOLOMON CATH DRAINING WELL TO BSB. PT INDEPENDENT WITH BED MOBILITY. SAFETY PRECAUTIONS IN PLACE. BED LOCKED AND IN LOWEST POSITION, CALL LIGHT WITHIN REACH, BED ALARM ON. NO ACUTE CHANGES THROUGHOUT SHIFT. WILL ENDORSE TO AM RN FOR MELLISSA.
[2018-06-19 08:00] VITALS: BP 98/50
--- NOTE | 2018-06-19 08:00 | NUR ---
MS1/RN AM SHIFT INITIAL NOTES RECEIVED PT ASLEEP IN BED, EASILY AROUSEABLE, PT A/O X 4, DENIES ANY SYMPTOMS AT THIS TIME. NO ACUTE RESPIRATORY DISTRESS NOTED. ON 3L O2 VIA N/C SATURATING @ 91%, LUNG SOUNDS DIMINISHED, RESPIRATIONS EVEN AND UNLABORED. IV SITE ON TKO, PATENT, NO S/S OF INFECTION. PT IS COMFORTABLE AT THIS TIME, SCHEDULED AM MEDS TO BE GIVEN. CL WITHIN REACHED AND SAFETY MAINTAINED. ON GOING MONITORING.
[2018-06-19 08:08] LABS: BASOPHILS # (AUTO) 0.1 /CMM (0.0-0.2); BASOPHILS % (AUTO) 0.8 % (0.0-2.0); EOSINOPHILS % (AUTO) 2.8 % (0.0-6.0); HEMATOCRIT 29 % (39-51); LYMPHOCYTES # (AUTO) 0.6 /CMM (0.8-4.8); LYMPHOCYTES % (AUTO) 7.5 % (20.0-44.0); MEAN CORPUSCULAR HGB CONC 31 g/dl (31.0-36.0); MEAN CORPUSCULAR VOLUME 78 fL (80-96); MONOCYTES # (AUTO) 1.2 /CMM (0.1-1.30); MONOCYTES % (AUTO) 16.7 % (2.0-12.0); NEUTROPHILS # (AUTO) 5.4 /CMM (1.8-8.9); NEUTROPHILS % (AUTO) 72.2 % (43.0-81.0); PLATELET COUNT (AUTO) 158 /CMM (150-450); RED BLOOD CELL COUNT(AUTO) 3.69 MIL/uL (4.5-6.0); WHITE BLOOD COUNT (AUTO) 7.5 K/uL (4.3-11.0)
[2018-06-19] MEDS: PANTOPRAZOLE 40 MG VIAL IV SCH ×2 (08:26→16:58)
[2018-06-19] MEDS: AMIODARONE HCL 200 MG TABLET PO SCH ×2 (08:27→16:59)
--- NOTE | 2018-06-19 09:19 | NUR ---
WOUND CARE CONSULT: PT PRESENTS WITH LEFT HEEL CALLUS AND LEFT GREAT TOENAIL DEFORMITY, PRESENT ON ADMISSION. DPM CONSULT WAS CALLED BY PHYSICIAN. PT NOTED TO HAVE VERY BONY SACRAL AREA. RECOMMENDATIONS MADE FOR SKIN PROTECTION. DISCUSSED WITH NURSING STAFF. WILL SEE PRN. CURRENT BRISSA SCORE IS 16. MD IN AGREEMENT WITH PLAN OF CARE. Addendum: 06/19/18 at 0921 by HARIS LEES WNDNU Amended: Links added.
[2018-06-19] MEDS ORDERED: Z GUARD REMEDY 2 OZ OINT TP PRN (09:30)
[2018-06-19 12:27] LABS: HEMOGLOBIN 9.6 g/dL (13.5-17.5)
[2018-06-19] MEDS: Z GUARD REMEDY 2 OZ OINT TP SCH (12:56)
[2018-06-19] MEDS: ENSURE ENLIVE 237 ML LIQUID (VANILLA) PO SCH ×3 (13:00→16:59)
[2018-06-19] MEDS: SOD FERRIC GLUC 125 MG in IV NS 0.9% 100 ML IV SCH (14:19)
--- NOTE | 2018-06-19 15:00 | NUR ---
MS1/RN ROUNDS - PATRICIA ALVARADO UPDATED PT'S CONDITION. PT SEEN & EXAMINED BY PATRICIA ALVARADO AT BEDSIDE, NOTED PT GASPING FOR AIR, IMMEDIATELY CALLED RT. O2 VIA N/C INCREASED, ON GOING MONITORING. Addendum: 06/19/18 at 1529 by HAMIDA GUTIERREZ RN ADDENDUM: PT PLACED ON BI-PAP, SATURATING @ 100%, PT'S ACUITY UPGRADED TO TELEMETRY.
--- NOTE | 2018-06-19 15:19 | NUR ---
RT NOTE PT PLACED ON BIPAP PER JENNY TIE IN HAND ORDER. PT AWAKE AND ALERT. NO DISTRESS NOTED AT MOMENT. Addendum: 06/19/18 at 1521 by CRISTOFER SIDDIQI RT Amended: Links added.
[2018-06-19 16:00] VITALS: BP 107/53
--- NOTE | 2018-06-19 19:28 | NUR ---
TELE1/RN AM SHIFT END NOTES PT ON BI-PAP, BREATHING MUCH BETTER, SATURATING WELL, ALL NEEDS MET. PT ENDORSED TO PM NURSE TO CONTINUE CARE. CL WITHIN REACHED AND SAFETY MAINTAINED.
--- NOTE | 2018-06-19 19:42 | NUR ---
CRAP GAME BOX PERSON NOTE: RECEIVED PT ON BED ALERT AND ORIENTED X3, VERBALLY RESPONSIVE. NO APPARENT DISTRESS NOTED. DENIES PAIN AND DISCOMFORT AT THIS TIME. ON 3LPM NASAL CANNULA, NO SOB NOTED. HEAD OF BED KEPT ELEVATED. SINUS RHYTHM ON TELE MONITOR HR 82BPM. LEFT ANTECUBITAL #20 INTACT AND PATENT, FLUSHING WELL. NO SIGNS/SYMPTOMS OF INFILTRATION NOTED. SOLOMON CATH INTACT, DRAINING WELL. KEPT CLEAN, DRY AND COMFORTABLE. SAFETY AND FALL PRECAUTIONS OBSERVED AND MAINTAINED. WILL CONTINUE TO MONITOR PT.
[2018-06-19 20:00] VITALS: BP 112/42
--- NOTE | 2018-06-19 21:46 | NUR ---
RECEIVED PT ON 3L NC. AWAKE AND ALERT. O2 SAT 98%. NO DISTRESS. BIPAP S/B. WILL CONTINUE TO MONITOR.
[2018-06-20] VITALS: BP 101/53
[2018-06-20 04:00] VITALS: BP 116/57
--- NOTE | 2018-06-20 06:45 | NUR ---
INTELLIGENCE OPERATIONS SPECIALIST NOTE: NO CHANGES NOTED THROUGHOUT THE SHIFT. NO APPARENT DISTRESS NOTED. DENIES PAIN AND DISCOMFORT AT THIS TIME. ON 3LPM NASAL CANNULA, NO SOB NOTED. SATURATING WELL ON NASAL CANNULA. SINUS RHYTHM ON TELE MONITOR HR 77BPM. SOLOMON CATH INTACT AND PATENT, DRAINED 600ML OF URINE OUTPUT. KEPT CLEAN, DRY AND COMFORTABLE. SAFETY AND FALL PRECAUTIONS OBSERVED AND MAINTAINED. WILL ENDORSE TO DAY SHIFT RN FOR CONTINUITY OF CARE
[2018-06-20 08:00] VITALS: BP 111/54
[2018-06-20] MEDS: PANTOPRAZOLE 40 MG VIAL IV SCH (08:00)
[2018-06-20] MEDS: AMIODARONE HCL 200 MG TABLET PO SCH (08:00)
--- NOTE | 2018-06-20 08:00 | NUR ---
TELE1/RN AM SHIFT INITIAL NOTES RECEIVED PT ASLEEP IN BED, EASILY AROUSEABLE, PT A/O X 4, DENIES ANY SYMPTOMS OF RESPIRATORY DISTRESS AT THIS TIME. ON 3L O2 VIA N/C SATURATING @ 94%, LUNG SOUNDS DIMINISHED, RESPIRATIONS EVEN AND UNLABORED. ON TELE MONITORING, SINUS RHYTHM, HR 74. IV SITE ON TKO, PATENT, NO S/S OF INFECTION. SOLOMON CATHETER INTACT WITH YELLOW URINE OUTPUT. PT IS COMFORTABLE AT THIS TIME, SCHEDULED AM MEDS TO BE GIVEN. CL WITHIN REACHED AND SAFETY MAINTAINED. ON GOING MONITORING.
[2018-06-20] MEDS: Z GUARD REMEDY 2 OZ OINT TP SCH (08:01)
[2018-06-20] MEDS: ENSURE ENLIVE 237 ML LIQUID (VANILLA) PO SCH ×3 (08:01→16:39)
--- NOTE | 2018-06-20 09:22 | NUR ---
TELE1/RN ROUNDS - DR. HUITRON PT SEEN & EXAMINED BY DR. HUITRON. NO NEW ORDERS RECEIVED AT THIS TIME. MONITORING CONTINUED.
--- NOTE | 2018-06-20 09:25 | NUR ---
TELE1/RN ROUNDS - DR. MEDINA UPDATED PT'S CONDITION. PT SEEN & EXAMINED BY DR. MEDINA. NO NEW ORDERS RECEIVED AT THIS TIME. MONITORING CONTINUED.
--- NOTE | 2018-06-20 10:00 | NUR ---
TELE1/RN ROUNDS - DR. ZENDEJAS FOLLOW-UP ON THE CONSULT MADE ON THE PT. NOTIFIED THAT PT IS STILL EXPERIENCING PAIN ON HIS LEFT FOOT. MD WENT TO PT'S ROOM AND RE-EXAMINED PT'S FOOT, REMOVED CALLUS AND WILL ORDER X-RAY OF FOOT TO VERIFY ANY FRACTURES. NOTED. MONITORING CONTINUED.
--- NOTE | 2018-06-20 10:59 | NUR ---
TELE1/RN CONSENT - THORACENTESIS CONSENT FOR THORACENTESIS OBTAINED FROM THE PT, NOTIFIED ULTRASOUND OF THE CONSENT, ORDERED STAT COAGULATION PANEL PER TECH REQUEST.
[2018-06-20] MEDS: FUROSEMIDE 40 MG/4 ML VIAL IV SCH ×2 (11:10→16:38)
[2018-06-20 12:00] VITALS: BP 126/61
--- NOTE | 2018-06-20 12:07 | NUR ---
AT 12 PM NO LAB WORK DONE, CALLED LAB FLOOR AND THEY SAID THAT THE PATIENT IS HARD STICK AND WILL SEND SOMEONE ELSE TO DRAW BLOOD.
[2018-06-20 13:17] LABS: HEMOGLOBIN 10.7 g/dL (13.5-17.5)
--- NOTE | 2018-06-20 14:15 | NUR ---
ALESIA/RN LEFT LUNG THORACENTESIS DR. SERRANO PERFORMED ULTRASOUND GUIDED LEFT LUNG THORACENTESIS WITH WOMEN'S APPAREL SALESPERSON ASSISTING. REMOVED 1.1 PLEURAL FLUID. PT TOLERATED PROCEDURE. SPECIMEN SENT TO LAB FOR ANALYSIS. RADIOLOGY NOTIFIED OF POST PROCEDURE. ON GOING MONITORING. Addendum: 06/20/18 at 1931 by HAMIDA GUTIERREZ RN REMOVED 1.1 L OF PLEURAL FLUID.
[2018-06-20 16:00] VITALS: BP 116/57
--- NOTE | 2018-06-20 17:40 | NUR ---
MS1/RN AFTERNOON ROUNDS NO ACUTE RESPIRATORY DISTRESS NOTED. PM CARE PROVIDED. ON GOING MONITORING.
--- NOTE | 2018-06-20 19:10 | NUR ---
MS/RN INITIAL NOTES RECEIVED PT IN BED, A/OX3. ON 3L O2 VIA NC, NO RESPIRATORY DISTRESS AT THIS TIME. NO C/O PAIN. PT IS S/P THORACENTESIS OF LEFT LUNG, NO SIGNS OF BLEEDING ON SITE. FC INTACT AND IN PLACED. WITH ONGOING IVF NS AT TKO ON LEFT AC G18. R WRIST G20 HEPLOCK PATENT, C/D/I. SAFETY MEASURES IN PLACED. CALL LIGHT WITHIN EASY REACH. WILL CONT TO MONITOR
--- NOTE | 2018-06-20 19:31 | NUR ---
MS1/RN AM SHIFT END NOTES ALL NEEDS MET. NO ACUTE CHANGE OF CONDITION NOTED DURING THE SHIFT. PT ENDORSED TO PM NURSE TO CONTINUE CARE. CL WITHIN REACHED AND SAFETY MAINTAINED.
[2018-06-20 20:00] VITALS: BP 107/57
[2018-06-21 04:00] VITALS: BP 115/63
--- NOTE | 2018-06-21 06:55 | NUR ---
RN NOTES PT IN STABLE CONDITION, NO ACUTE CHANGES THROUGHOUT SHIFT. ALL NEEDS ANTICIPATED. SAFETY MEASURES OBSERVED AT ALL TIMES. ENDORSED TO AM RN FOR MELLISSA
[2018-06-21 08:00] VITALS: BP 98/50
[2018-06-21] MEDS: Z GUARD REMEDY 2 OZ OINT TP SCH (09:03)
[2018-06-21] MEDS: ENSURE ENLIVE 237 ML LIQUID (VANILLA) PO SCH ×3 (09:03→17:06)
[2018-06-21] MEDS: PANTOPRAZOLE 40 MG/PACK PACK NG SCH (09:05)
[2018-06-21] MEDS: AMIODARONE HCL 200 MG TABLET PO SCH (09:06)
[2018-06-21 12:53] LABS: HEMOGLOBIN 10.3 g/dL (13.5-17.5)
--- NOTE | 2018-06-21 13:07 | NUR ---
RECEIVED ORDER FOR D/C TO HOME. CALLED [facility] TO ARRANGE TRANSPORTATION, NO ANSWER. LEFT MESSAGE. WILL TRY AGAIN LATER.
[2018-06-21 13:35] LABS: ABG BASE EXCESS 11.3 mmol/L; ABG OXYGEN SATURATION 92.1 % (92.0-98.5); ABG PCO2 46.2 mmHg (35.0-45.0); ABG PH 7.505 (7.350-7.450); ABG PO2 62.4 mmHg (75.0-100.0); COHb 0.9 % (0.5-1.5); MetHb 0.5 % (0.0-1.5); O2Hb 90.8 % (94.0-97.0); SITE, ABG Right Brachial; VENT MODE, BG room air
--- NOTE | 2018-06-21 13:37 | NUR ---
ROOM AIR 86%,CM NOTIFIED FOR OXYGEN USE.
--- NOTE | 2018-06-21 13:38 | NUR ---
PT. DESATURATES TO 86% ON ROOM AIR AT REST,PLACED ON O2 AND SAT IMPROVES TO 94%,MD AWARE.
--- NOTE | 2018-06-21 13:41 | NUR ---
ALSO CM MADE AWARE PT. SON UNABLE TO REACH.
[2018-06-21 16:00] VITALS: BP 117/63
--- NOTE | 2018-06-21 16:04 | NUR ---
FF. UP WITH [employer] STILL PENDING DISCHARGE UNABLE TO REACH SON.
--- NOTE | 2018-06-21 19:25 | NUR ---
RN OPEN NOTES RECEIVED PATIENT AWAKE IN BED. A/OX2. NO SIGNS OF DISTRESS OR DISCOMFORT. BREATHING EVEN AND UNLABORED. ON 2LPM O2 VIA NC. IV ACCESS IN RAC, PATENT AND INTACT, NO SIGNS OF REDNESS OR INFILTRATION. BED IN LOW LOCKED POSITION WITH SIDE RAILS X2. CALL LIGHT WITHIN REACH. WILL CONTINUE TO MONITOR. Addendum: 06/21/18 at 2127 by PRINCESS ALVA RN HAS F/C INTACT, DRAINING CLEAR YELLOW FLUID.
[2018-06-21 20:00] VITALS: BP 101/48
[2018-06-22 04:00] VITALS: BP 105/44
--- NOTE | 2018-06-22 07:00 | NUR ---
RN CLOSING NOTES PATIENT RESTING IN BED. A/OX2. NO SIGNS OF DISTRESS OR DISCOMFORT. BREATHING EVEN AND UNLABORED. ON 2LPM O2 VIA NC. IV ACCESS IN LFA, PATENT AND INTACT, NO SIGNS OF REDNESS OR INFILTRATION. HAS F/C INTACT, DRAINING CLEAR YELLOW FLUID. ALL NEEDS MET. NO SIGNIFICANT CHANGES THROUGH THE NIGHT. BED IN LOW LOCKED POSITION WITH SIDE RAILS X2. CALL LIGHT WITHIN REACH. WILL ENDORSE TO AM SHIFT FOR MELLISSA.
--- NOTE | 2018-06-22 07:53 | NUR ---
RECEIVED PT. ALERT AND ORIENTED X3. NO ACUTE DISTRESS OR SOB NOTED. 2L O2 VIA NC, TOLERATING WELL. SOLOMON CATHETER DRAINING CLEAR YELLOW URINE. IV SITE LFA #22 SL, CLEAN DRY AND INTACT. NO S/S BLEEDING NOTED. VSS. BED LOCKED, LOW, SIDE RAILS UPX2, BED ALARM ON, CALL LIGHT WITHIN REACH. AWAITING RESPONSE FROM SON CEDRIC TO PROCEED WITH DISCHARGE. WILL CONTINUE TO MONITOR
[2018-06-22 08:00] VITALS: BP 104/52
[2018-06-22] MEDS: ENSURE ENLIVE 237 ML LIQUID (VANILLA) PO SCH (08:29)
[2018-06-22] MEDS: Z GUARD REMEDY 2 OZ OINT TP SCH (08:29)
[2018-06-22] MEDS: PANTOPRAZOLE 40 MG/PACK PACK NG SCH (08:30)
[2018-06-22] MEDS: AMIODARONE HCL 200 MG TABLET PO SCH (08:30)
--- NOTE | 2018-06-22 11:14 | NUR ---
CALLED SON CEDRIC TO COORDINATE DISCHARGE, NO ANSWER, LEFT MESSAGE. AWAITING CALL BACK. DUMP TRUCK OPERATOR AWARE
[2018-06-22 16:00] VITALS: BP 111/60
--- NOTE | 2018-06-22 16:07 | NUR ---
SOLOMON REMOVED. 250 mL CLEAR, YELLOW URINE. WILL MONITOR FOR URINE OUTPUT
--- NOTE | 2018-06-22 18:55 | NUR ---
MS RN CLOSING NOTE PT. A/OX2. NO ACUTE DISTRESS OR SOB NOTED. 2LMP O2 VIA NC, TOLERATING WELL. LFA 22G SL, CLEAN, DRY AND INTACT. NEHA D/C'D @1607. NO SIGNIFICANT CHANGES. AWAITING ARRIVAL OF SON CEDRIC FOR ORDERED/PLANNED DISCHARGE TO HOME.
--- NOTE | 2018-06-22 19:48 | NUR ---
DISCHARGED Per report patient has been cleared for discharge home by yesterday (06/22/15). Patient remains stable. Discharge instruction, new prescription discussed and given to son Mihai, verbalized understanding. Patient refused skin photos, per patient it was just taken recently yesterday. All personal belongings send with the patient. IV peripheral line in LFA removed, gauzed applied. Patient left hosp in stable condition via private car accompanied by sonMihai.
== END 2018-06-22 20:14 | disposition home health service (06) | DRG 280 ==
LOC: ER 07:34 → ICU 10:02 → TELE-TD 06-18 06:01 → MEDSG1 06-18 08:27 → TELE1 06-19 15:29 → MEDSG1 06-20 17:17
PROVIDERS: ADMIT Registered Nurse; ATTEND Internal Medicine
PROC: 30233N1 Transfusion of Nonautologous Red Blood Cells into Peripheral Vein, Percutaneous Approach (ICD-10-PCS; principal; 2018-06-14)
PROC: 5A09457 Assistance with Respiratory Ventilation, 24-96 Consecutive Hours, Continuous Positive Airway Pressure (ICD-10-PCS; principal; 2018-06-14)
PROC: 0W9B3ZZ Drainage of Left Pleural Cavity, Percutaneous Approach (ICD-10-PCS; 2018-06-20)
DX: I13.2 Hypertensive heart and chronic kidney disease with heart failure and with stage 5 chronic kidney disease, or end stage renal disease (principal); J96.01 Acute respiratory failure with hypoxia; I21.A1 Myocardial infarction type 2; N18.6 End stage renal disease; E43 Unspecified severe protein-calorie malnutrition; I50.23 Acute on chronic systolic (congestive) heart failure; G93.41 Metabolic encephalopathy; J96.02 Acute respiratory failure with hypercapnia; K92.2 Gastrointestinal hemorrhage, unspecified; G93.40 Encephalopathy, unspecified; D68.59 Other primary thrombophilia; D62 Acute posthemorrhagic anemia; E87.2 Acidosis; J90 Pleural effusion, not elsewhere classified; J98.11 Atelectasis; R64 Cachexia; Z68.1 Body mass index [BMI] 19.9 or less, adult; E27.40 Unspecified adrenocortical insufficiency; D69.6 Thrombocytopenia, unspecified; I25.10 Atherosclerotic heart disease of native coronary artery without angina pectoris; Z99.2 Dependence on renal dialysis; E78.5 Hyperlipidemia, unspecified; E11.22 Type 2 diabetes mellitus with diabetic chronic kidney disease; E11.649 Type 2 diabetes mellitus with hypoglycemia without coma; F41.9 Anxiety disorder, unspecified; E87.6 Hypokalemia; J44.9 Chronic obstructive pulmonary disease, unspecified; D72.829 Elevated white blood cell count, unspecified; E83.39 Other disorders of phosphorus metabolism; I48.0 Paroxysmal atrial fibrillation; K21.9 Gastro-esophageal reflux disease without esophagitis; L60.3 Nail dystrophy; L84 Corns and callosities; Z99.81 Dependence on supplemental oxygen; I25.2 Old myocardial infarction; M62.50 Muscle wasting and atrophy, not elsewhere classified, unspecified site; I25.84 Coronary atherosclerosis due to calcified coronary lesion; I70.0 Atherosclerosis of aorta; R74.0 Nonspecific elevation of levels of transaminase and lactic acid dehydrogenase [LDH]; I25.5 Ischemic cardiomyopathy; I35.0 Nonrheumatic aortic (valve) stenosis
CPT/HCPCS: 36415; 36600; 71045-TC; 73620-TC; 75574; 76942-TC; 80048-TC; 80053-TC; 80061-TC; 82247-TC; 82248-TC; 82378; 82728-TC; 82803-TC; 83540-TC; 83605-TC; 83735-TC; 83880; 84100-TC; 84443-TC; 84484-TC; 85025-TC; 85027-TC; 85610-TC; 85730-TC; 86850-TC; 86921-TC; 87040-TC; 87070-TC; 87075-TC; 87081-TC; 87086-TC; 87102-TC; 88112-TC; 88305-TC; 88312-TC; 89051-TC; 93307-TC; 94660; 94799-TC; A6402; C9113; G0378; J0282; J1940; J2060; J2916; J2930; J3475; J3480; J3490; J7030; J7050; J7060; P9016-BL; Q9967

== ENCOUNTER 2018-11-07 15:52 | Inpatient (IN) | payer MEDICARE, OTHER ==
[~2018-11-07] VITALS: Ht 157.5 cm; Wt 41.8 kg
[2018-11-07] VITALS (7 sets, daily range): BP systolic 80–126; BP diastolic 33–73
--- NOTE | 2018-11-07 15:55 | NUR ---
[id number], FROM HOME, SOB, ALBUTEROL GIVEN BY EMS, Hx COPD; PT AAOX4, PT ON MONITOR, MD AT RT AT BEDSIDE
[2018-11-07] MEDS ORDERED: IPRATROPIUM NEB FS 0.5 MG/2.5 ML AMPUL.NEB ONE (16:06)
[2018-11-07] MEDS ORDERED: methylPREDNISolone SOD SUCC 125 MG/2ML VIAL ONE (16:06)
[2018-11-07] MEDS ORDERED: ALBUTEROL FS 2.5 MG/3 ML VIAL.NEB ONE (16:06)
[2018-11-07 16:16] LABS: BASOPHILS # (AUTO) 0.1 /CMM (0.0-0.2); BASOPHILS % (AUTO) 0.7 % (0.0-2.0); EOSINOPHILS % (AUTO) 0.5 % (0.0-6.0); HEMATOCRIT 25 % (39-51); HEMOGLOBIN 7.5 g/dL (13.5-17.5); LYMPHOCYTES # (AUTO) 2.9 /CMM (0.8-4.8); LYMPHOCYTES % (AUTO) 30.5 % (20.0-44.0); MEAN CORPUSCULAR HGB CONC 30 g/dl (31.0-36.0); MEAN CORPUSCULAR VOLUME 72 fL (80-96); MONOCYTES # (AUTO) 0.7 /CMM (0.1-1.30); MONOCYTES % (AUTO) 7.3 % (2.0-12.0); NEUTROPHILS # (AUTO) 5.7 /CMM (1.8-8.9); PLATELET COUNT (AUTO) 285 /CMM (150-450); WHITE BLOOD COUNT (AUTO) 9.4 K/uL (4.3-11.0)
[2018-11-07] MEDS ORDERED: IPRATROPIUM NEB FS 0.5 MG/2.5 ML AMPUL.NEB NEB ONE (16:30)
[2018-11-07] MEDS ORDERED: methylPREDNISolone SOD SUCC 125 MG/2ML VIAL IV ONE (16:30)
[2018-11-07] MEDS ORDERED: IV NS 0.9% 500 ML IV ONE (16:30)
[2018-11-07] MEDS ORDERED: ALBUTEROL FS 2.5 MG/3 ML VIAL.NEB NEB ONE (16:30)
[2018-11-07 16:33] LABS: CALCIUM, SERUM 8.7 mg/dL (8.5-10.1); CARBON DIOXIDE 28 mmol/L (21-32); CHLORIDE 104 mmol/L (98-107); CREATININE 0.7 mg/dL (0.6-1.3); GLUCOSE 130 mg/dL (74-106); POTASSIUM 3.1 mmol/L (3.5-5.1); SODIUM SERUM 141 mmol/L (136-145); UREA NITROGEN, BLOOD 7 mg/dL (7-18)
[2018-11-07 16:45] LABS: ALANINE AMINOTRANSFERASE < 6 U/L (12-78); ALBUMIN 2.8 g/dL (3.4-5.0); ALKALINE PHOSPHATASE 77 U/L (46-116); ASPARTATE AMINOTRANSFERASE 18 U/L (15-37); B-TYPE NATRIURETIC PEPTIDE 1441 PG/ML (0-125); BILIRUBIN,DIRECT 0.1 mg/dL (0.0-0.2); BILIRUBIN,TOTAL 0.2 mg/dL (0.2-1.0); TOTAL PROTEIN, SERUM 7.1 g/dL (6.4-8.2)
[2018-11-07] MEDS ORDERED: BREATHING TX (16:47)
[2018-11-07] MEDS ORDERED: AMIODARONE (16:47)
[2018-11-07] MEDS ORDERED: POTASSIUM CHLORIDE (16:47)
[2018-11-07 16:48] LABS: EOSINOPHILS % (MANUAL) 1 % (0-4); LYMPHOCYTES % (MANUAL) 28 % (16-48); MONOCYTES % (MANUAL) 8 % (0-11.0); NEUTROPHILS % (MANUAL) 63 (42-76)
[2018-11-07 16:49] LABS: ABG BASE EXCESS -0.7 mmol/L; ABG OXYGEN SATURATION 99.3 % (92.0-98.5); ABG PCO2 37.6 mmHg (35.0-45.0); ABG PH 7.417 (7.350-7.450); ABG PO2 207.3 mmHg (75.0-100.0); AaDO2 106.9 mmHg; COHb 2.5 % (0.5-1.5); MetHb 0.4 % (0.0-1.5); O2Hb 96.4 % (94.0-97.0); SITE, ABG Left Radial; VENT MODE, BG ST 15/5 50% RR20
[2018-11-07] MEDS ORDERED: FUROSEMIDE 40 MG/4 ML VIAL IV ONE (17:00)
--- NOTE | 2018-11-07 17:01 | NUR ---
CALLED [facility]. ROUSTABOUT PUSHER WAS PAGED.
--- NOTE | 2018-11-07 17:02 | NUR ---
CALLED [facility] FOR ICU BED
--- NOTE | 2018-11-07 17:05 | NUR ---
ICU 259 BED GIVEN
[2018-11-07] MEDS ORDERED: FUROSEMIDE 40 MG/4 ML VIAL ONE (17:08)
--- NOTE | 2018-11-07 17:24 | NUR ---
REPORT GIVEN TO STEVEN SALVADOR FOR MELLISSA PT WILL BE TRANSPORTED TO ICU
--- NOTE | 2018-11-07 17:27 | NUR ---
REPORT RECEIVED FROM [facility]
--- NOTE | 2018-11-07 17:40 | NUR ---
TEARER ADMITTING NOTES RECEIVED PATIENT FROM ED VIA NGHIA AND ACLS PROTOCOL. ON NON-REBREATHER MASK HAVING TROUBLE BREATHING RT PLACE PATIENT ON BIPAP AND NOW SHOWING BETTER BREATHING PATTERN TOLERATING CURRENT SETTINGS WELL NO C/O PAIN AT THIS TIME. WEIGHED ON BED SCALE 80 LBS VERY THIN MALE A/O X3 BULGARIAN SPEAKING. USING URINAL 200 ML CLEAR YELLOW URINE SKIN INTACT DRY LEFT BIG TOE DRY FUNGAL NAIL. IV TO R HAND # 20 SALINE LOCK AND LEFT HAND # 20 SALINE LOCK. VITAL SIGNS 126/69 TEMP 98.4 O2 100% HR 98 . AWAITING ORDER FROM RAFA MORA SAFETY AND ASPIRATION PRECAUTIONS IN PLACE BED IN LOW LOCKED POSITION ORIENTED TO ROOM AND CALL LIGHT PERSONAL BELONGINGS AND URINAL WITHIN REACH
--- NOTE | 2018-11-07 17:52 | NUR ---
NOTIFIED RAFA MORA THAT PATIENT WAS ON UNIT AWAITING FOR ORDERS
[2018-11-07] MEDS ORDERED: MAGNESIUM HYDROXIDE 30 ML UDC PO PRN (18:30)
[2018-11-07] MEDS ORDERED: Z GUARD REMEDY 2 OZ OINT TP PRN (18:30)
[2018-11-07] MEDS ORDERED: ONDANSETRON HCL/PF 4 MG/2 ML VIAL IVP PRN (18:30)
[2018-11-07] MEDS ORDERED: ACETAMINOPHEN 325 MG TABLET PO PRN (18:30)
[2018-11-07] MEDS ORDERED: MAG HYDROX/AL HYDROX/SIMETH 30 ML UDC PO PRN (18:30)
[2018-11-07] MEDS ORDERED: ALBUTEROL FS 2.5 MG/3 ML VIAL.NEB NEB PRN (18:30)
[2018-11-07] MEDS ORDERED: IPRATROPIUM NEB FS 0.5 MG/2.5 ML AMPUL.NEB NEB PRN (18:30)
[2018-11-07] MEDS: POTASSIUM CL. PREMIX PERIPHER. 50 ML IV SCH ×4 (18:49→22:31)
--- NOTE | 2018-11-07 19:00 | NUR ---
RECEIVED PATIENT IN NO ACUTE DISTRESS IN BED. PATIENT IS A/O X 3 AND ABLE TO MAKE NEEDS KNOWN. PATIENT IS ON O2 VIA BIPAP WITH SETTING RATE 16, FIO2 40%. PATIENT TOLERATING WELL. PATIENT IS ON TELE WITH SINUS TACH ON THE MONITOR. PATIENT NOT COMPLAINING OF ANY SOB, DIFFICULTY BREATHING OR PAIN AT THIS TIME. PATIENT HAS RIGHT AC 18G THAT IS CLEAN DRY INTACT AND PATENT WITH NS @ TKO. PATIENT HAS RIGHT HAND 20G THAT IS CLEAN DRY INTACT AND PATENT WITH SALINE LOCK. PATIENT HAS LEFT HAND 20G THAT IS CLEAN DRY INTACT AND PATENT WITH SALINE LOCK. BED IN LOW LOCK POSITION WITH RAILS UP X 2. CALL LIGHT WITHIN REACH AND ALL SAFETY MEASURES ENSURED AND CARRIED OUT. WILL CONTINUE TO MONITOR PATIENT.
--- NOTE | 2018-11-07 19:14 | NUR ---
VERIFIED WITH RAFA MORA BLOOD TO BE TRANSFUSED IF HBG >7
[2018-11-07] MEDS: ALBUTEROL FS 2.5 MG/3 ML VIAL.NEB NEB SCH (19:26)
[2018-11-07] MEDS: IPRATROPIUM NEB FS 0.5 MG/2.5 ML AMPUL.NEB NEB SCH (19:26)
--- NOTE | 2018-11-07 23:00 | NUR ---
PERFORMED BEDSIDE SWALLOW EVALUATION AND PATIENT ABLE TO SWALLOW WATER WITH NO DIFFICULTY OR COUGHING NOTED.
--- NOTE | 2018-11-07 23:13 | NUR ---
PLACED PT ON 2L NC. SPO2 97%, HR 94. MADELEINE AGUILAR AT BEDSIDE. BIPAP S/B. NO SOB. WILL CONTINUE TO MONITOR.
[2018-11-08] VITALS (34 sets, daily range): BP systolic 63–122; BP diastolic 20–81
[2018-11-08] MEDS: IPRATROPIUM NEB FS 0.5 MG/2.5 ML AMPUL.NEB NEB SCH ×4 (01:12→20:08)
[2018-11-08] MEDS: ALBUTEROL FS 2.5 MG/3 ML VIAL.NEB NEB SCH ×4 (01:12→20:08)
[2018-11-08 04:19] LABS: BASOPHILS % (AUTO) 0.1 % (0.0-2.0); LYMPHOCYTES # (AUTO) 0.8 /CMM (0.8-4.8); LYMPHOCYTES % (AUTO) 12.6 % (20.0-44.0); MEAN CORPUSCULAR HGB CONC 30 g/dl (31.0-36.0); MEAN CORPUSCULAR VOLUME 72 fL (80-96); MONOCYTES # (AUTO) 0.3 /CMM (0.1-1.30); MONOCYTES % (AUTO) 4.3 % (2.0-12.0); NEUTROPHILS # (AUTO) 5.6 /CMM (1.8-8.9); PLATELET COUNT (AUTO) 204 /CMM (150-450); RED BLOOD CELL COUNT(AUTO) 2.83 MIL/uL (4.5-6.0); WHITE BLOOD COUNT (AUTO) 6.8 K/uL (4.3-11.0)
[2018-11-08 04:46] LABS: ALBUMIN 2.5 g/dL (3.4-5.0); ALKALINE PHOSPHATASE 58 U/L (46-116); ASPARTATE AMINOTRANSFERASE 12 U/L (15-37); BILIRUBIN,TOTAL 0.3 mg/dL (0.2-1.0); CARBON DIOXIDE 26 mmol/L (21-32); CHLORIDE 103 mmol/L (98-107); CREATININE 1.2 mg/dL (0.6-1.3); GLUCOSE 326 mg/dL (74-106); MAGNESIUM 1.6 mg/dL (1.8-2.4); PHOSPHORUS 3.7 mg/dL (2.5-4.9); POTASSIUM 4.1 mmol/L (3.5-5.1); SODIUM SERUM 140 mmol/L (136-145); TOTAL PROTEIN, SERUM 6.3 g/dL (6.4-8.2); UREA NITROGEN, BLOOD 10 mg/dL (7-18)
[2018-11-08 04:50] LABS: CHOLESTEROL 153 mg/dL (<200); HDL CHOLESTEROL 72 mg/dL (40-60); LDL 66 mg/dL (0-99); THYROID STIMULATING HORMONE 0.295 uIU/mL (0.358-3.74); TRIGLYCERIDES 31 mg/dL (30-150)
[2018-11-08 04:54] LABS: ALANINE AMINOTRANSFERASE < 6 U/L (12-78); CALCIUM, SERUM 8.4 mg/dL (8.5-10.1)
[2018-11-08 04:56] LABS: HEMATOCRIT 20 % (39-51)
[2018-11-08 04:57] LABS: HEMOGLOBIN 6.2 g/dL (13.5-17.5)
[2018-11-08 05:14] LABS: NEUTROPHILS % (MANUAL) 90 (42-76)
[2018-11-08 05:15] LABS: LYMPHOCYTES % (MANUAL) 7 % (16-48); MONOCYTES % (MANUAL) 3 % (0-11.0)
[2018-11-08 05:36] LABS: IRON, SERUM 9 ug/dl (50-175); TOTAL IRON BINDING CAPACITY 267 ug/dl (250-450)
--- NOTE | 2018-11-08 06:50 | NUR ---
PATIENT REMAINS IN NO ACUTE DISTRESS IN BED. PATIENT DID NOT HAVE ANY SIGNIFICANT CHANGE IN CONDITION DURING SHIFT. ALL NEEDS MET, ALL ORDERS CARRIED OUT. WILL ENDORSE CARE TO AM RN FOR CONTINUITY OF CARE.
--- NOTE | 2018-11-08 07:20 | NUR ---
RN NOTES RECEIVED PATIENT IN NO ACUTE DISTRESS IN BED. PATIENT IS A/O X 3 AND ABLE TO MAKE NEEDS KNOWN. PATIENT IS ON O2 VIA NASAL CANNULA. PATIENT TOLERATING WELL. PATIENT IS ON TELE WITH SINUS TACH ON THE MONITOR. PATIENT NOT COMPLAINING OF ANY SOB, DIFFICULTY BREATHING OR PAIN AT THIS TIME. PATIENT HAS RIGHT AC 18G THAT IS CLEAN DRY INTACT AND PATENT WITH NS @ TKO. PATIENT HAS RIGHT HAND 20G THAT IS CLEAN DRY INTACT AND PATENT WITH SALINE LOCK. PATIENT HAS LEFT HAND 20G THAT IS CLEAN DRY INTACT AND PATENT WITH SALINE LOCK. BED IN LOW LOCK POSITION WITH RAILS UP X 2. CALL LIGHT WITHIN REACH AND ALL SAFETY MEASURES ENSURED AND CARRIED OUT. WILL CONTINUE TO MONITOR PATIENT.
[2018-11-08] MEDS: PANTOPRAZOLE 40 MG TABLET.DR PO SCH (08:45)
[2018-11-08] MEDS: Magnesium 1GM/D5W 100ML PREMIX 100 ML IV SCH ×2 (08:47→10:30)
[2018-11-08 08:57] LABS: ABG BASE EXCESS 1.5 mmol/L; ABG OXYGEN SATURATION 95.2 % (92.0-98.5); ABG PCO2 32.5 mmHg (35.0-45.0); ABG PH 7.501 (7.350-7.450); ABG PO2 73.7 mmHg (75.0-100.0); AaDO2 87.6 mmHg; COHb 1.8 % (0.5-1.5); MetHb 0.8 % (0.0-1.5); O2Hb 92.7 % (94.0-97.0); SITE, ABG Right Radial; VENT MODE, BG Nasal Cannula
[2018-11-08] MEDS ORDERED: methylPREDNISolone SOD SUCC 125 MG/2ML VIAL IV SCH (09:00)
[2018-11-08] MEDS: methylPREDNISolone SOD SUCC 125 MG/2ML VIAL IV SCH (10:30)
--- NOTE | 2018-11-08 10:30 | NUR ---
RN NOTES AM DOSE OF SOLUMEDROL GIVEN DAILY DOSE TO START TOMORROW TITRATING DOWN
--- NOTE | 2018-11-08 14:00 | NUR ---
RN NOTES CALLED PHARMACY FOR FERLECCIT PER PHARMACY WILL DELIVER
[2018-11-08 14:36] LABS: CREATININE, URINE 60.2 MG/DL (30.0-125.0)
[2018-11-08 15:12] LABS: APPEARANCE,URINE Clear (CLEAR); BILIRUBIN,URINE Negative (NEGATIVE); BLOOD, URINE Negative Ery/uL (NEGATIVE); COLOR,URINE Yellow (YELLOW); KETONES,URINE Negative (NEGATIVE); LEUKOCYTE ESTERASE ,URINE Negative (NEGATIVE); NITRITE, URINE Negative (NEGATIVE); PH,URINE 5.5 (5.0-8.0); PROTEIN,URINE Negative (NEGATIVE); UGLUCOSE 250 MG/DL mg/dL (NEGATIVE); UROBILINOGEN,URINE 0.2 EU/dL (0.2)
[2018-11-08 15:34] LABS: EOSINOPHIL,URINE None Seen
[2018-11-08] MEDS: SOD FERRIC GLUC 125 MG in IV NS 0.9% 100 ML IV SCH (16:53)
[2018-11-08] MEDS ORDERED: ENSURE ENLIVE 237 ML LIQUID (VANILLA) PO SCH (17:00)
--- NOTE | 2018-11-08 18:46 | NUR ---
RN NOTES PATIENT IN NO ACUTE DISTRESS IN BED. PATIENT IS A/O X 3 AND ABLE TO MAKE NEEDS KNOWN. PATIENT IS ON O2 VIA NASAL CANNULA, TOLERATING WELL. PATIENT IS ON TELE WITH SINUS TACH ON THE MONITOR. PATIENT NOT COMPLAINING OF ANY SOB, DIFFICULTY BREATHING OR PAIN AT THIS TIME. PATIENT HAS LEFT HAND AC 20G THAT IS CLEAN DRY INTACT AND PATENT WITH NS @ TKO. PATIENT HAS RIGHT HAND 20G THAT IS CLEAN DRY INTACT AND PATENT WITH SALINE LOCK. BED IN LOW LOCK POSITION WITH RAILS UP X 2. CALL LIGHT WITHIN REACH AND ALL SAFETY MEASURES ENSURED AND CARRIED OUT. WILL CONTINUE TO MONITOR PATIENT AND ENDORSE TO NEXT SHIFT FOR CONTINUITY OF CARE
--- NOTE | 2018-11-08 19:30 | NUR ---
ICU/RN NOTES RECEIVED PT.AWAKE ALERT,OX3.DENIES PAIN OR DISCOMFORT.MONITOR SHOWS NSR.
--- NOTE | 2018-11-08 21:35 | NUR ---
ICU/RN NOTES CALL PLACED TO RENETTA DNP RE=SBP OF 75MHG.CALLED BACK IN 5MIN.BP CHECKED MANUALLY ORDERED=80/42 W/ MAP OF 81.
[2018-11-08 21:41] LABS: OCCULT BLOOD STOOL NEGATIVE (NEGATIVE)
[2018-11-08] MEDS ORDERED: NOREPINEPHRINE 8 MG in IV D5W 500 ML IV PRN (22:00)
[2018-11-08] MEDS ORDERED: NOREPINEPHRINE 4 MG/4 ML AMPUL IV ONE (22:02)
--- NOTE | 2018-11-08 22:05 | NUR ---
ICU/RN NOTES STARTED ON LEVOPHED AT 2MCG/MIN FOR LOW BP. ORDERED BY RENETTA WELDON
--- NOTE | 2018-11-08 22:30 | NUR ---
ICU/RN NOTES RAFIA LIZ IN TO INSERT MIDLINE,INSERTED VIA RT UPPER ARM WITHOUT DIFFICULTY, G#18
[2018-11-09] VITALS (67 sets, daily range): BP systolic 50–158; BP diastolic 18–95
--- NOTE | 2018-11-09 | NUR ---
ICU/RN NOTES REMAINS ON LEVOPHED DRIP,MONITOR SHOWS SR.OFFERS NO COMPLAINTS.SLEEPING INTERMITTENTLY.CONFUSED AT TIMES,RE-ORIENTED TO PLACE AN SURROUNDINGS.
[2018-11-09] MEDS: IPRATROPIUM NEB FS 0.5 MG/2.5 ML AMPUL.NEB NEB SCH ×4 (01:32→19:28)
[2018-11-09] MEDS: ALBUTEROL FS 2.5 MG/3 ML VIAL.NEB NEB SCH ×4 (01:32→19:28)
--- NOTE | 2018-11-09 02:00 | NUR ---
ICU/RN NOTES LEVOPHED DECREASED TO 1MCG/MIN W/ MAP=80.PT AWAKE DC'D N/C,ON ROOM AIR W/ O2 SAT OF 91-93%
--- NOTE | 2018-11-09 02:30 | NUR ---
ICU/RN NOTES SBP=68 ON 1MCG/MIN OF LEVOPHED.LEVOPHED INCREASED TO 2MCG/MIN.
--- NOTE | 2018-11-09 02:45 | NUR ---
ICU/RN NOTES PT PULLED RT UPPER ARM MIDLINE,LEVOPHED CONNECTED TO RT.HAND.
[2018-11-09 04:28] LABS: BASOPHILS % (AUTO) 0.1 % (0.0-2.0); HEMATOCRIT 23 % (39-51); HEMOGLOBIN 7.1 g/dL (13.5-17.5); LYMPHOCYTES # (AUTO) 1.6 /CMM (0.8-4.8); LYMPHOCYTES % (AUTO) 7.6 % (20.0-44.0); MEAN CORPUSCULAR HGB CONC 31 g/dl (31.0-36.0); MEAN CORPUSCULAR VOLUME 74 fL (80-96); MONOCYTES % (AUTO) 4.8 % (2.0-12.0); NEUTROPHILS # (AUTO) 17.8 /CMM (1.8-8.9); NEUTROPHILS % (AUTO) 87.5 % (43.0-81.0); PLATELET COUNT (AUTO) 210 /CMM (150-450); RED BLOOD CELL COUNT(AUTO) 3.05 MIL/uL (4.5-6.0); WHITE BLOOD COUNT (AUTO) 20.4 K/uL (4.3-11.0)
[2018-11-09 04:49] LABS: ALANINE AMINOTRANSFERASE < 6 U/L (12-78); ALBUMIN 2.2 g/dL (3.4-5.0); ALKALINE PHOSPHATASE 50 U/L (46-116); ASPARTATE AMINOTRANSFERASE 11 U/L (15-37); BILIRUBIN,TOTAL 0.6 mg/dL (0.2-1.0); CALCIUM, SERUM 8.5 mg/dL (8.5-10.1); CARBON DIOXIDE 31 mmol/L (21-32); CHLORIDE 100 mmol/L (98-107); CREATININE 0.6 mg/dL (0.6-1.3); GLUCOSE 146 mg/dL (74-106); MAGNESIUM 2.2 mg/dL (1.8-2.4); PHOSPHORUS 2.3 mg/dL (2.5-4.9); POTASSIUM 3.8 mmol/L (3.5-5.1); SODIUM SERUM 134 mmol/L (136-145); TOTAL PROTEIN, SERUM 5.7 g/dL (6.4-8.2); UREA NITROGEN, BLOOD 12 mg/dL (7-18)
[2018-11-09 04:51] LABS: CREATINE KINASE, TOTAL 30 U/L (39-308)
--- NOTE | 2018-11-09 05:45 | NUR ---
ICU/RN NOTES MAINTAINING MAP.65 ORDERED.LEVOPHED DECREASED TO 1MCG/MIN.JH=047/50.SUCTIONED W/ SALINE LAVAGE FOR THIN PALE YELLOW SECRETIONS.TRACH CARE DONE.
[2018-11-09] MEDS ORDERED: SORBITOL SOLUTION 30 ML PO ONE (06:00)
--- NOTE | 2018-11-09 08:00 | NUR ---
ICU/RN INITIAL NOTES,AM RECEIVED BEDSIDE REPORT FROM NIGHT NURSE. PT ALERT, AWAKE, FOLLOWS COMMANDS. PT ON ROOM AIR, NO DISTRESS. PT SINUS ON TELE. URINAL AT BEDSIDE, PT ABLE TO USE. LOW DOSE LEVO INFUSING FOR BP SUPPORT, WILL TITRATE PER PARAMETERS. PER REPORT PT PULLED OUT MIDLINE AND PIV. ALL NEEDS WILL BE ATTENDED TO, SAFETY MEASURES TAKEN, BE IN LOW POSITION, SIDE RAILS UP, CALL LIGHT WITHIN REACH.
[2018-11-09] MEDS: PANTOPRAZOLE 40 MG TABLET.DR PO SCH (08:29)
[2018-11-09] MEDS: FUROSEMIDE 40 MG/4 ML VIAL IV SCH ×2 (08:29→12:30)
[2018-11-09] MEDS: methylPREDNISolone SOD SUCC 125 MG/2ML VIAL IV SCH (08:29)
[2018-11-09] MEDS: ENSURE ENLIVE 237 ML LIQUID (VANILLA) PO SCH ×3 (08:30→16:39)
--- NOTE | 2018-11-09 08:35 | NUR ---
ICU/RN: LEVOPHED OFF, VSS BP 138/58, HR 91. WILL CONTINUE TO MONITOR AND ASSESS.
--- NOTE | 2018-11-09 09:52 | NUR ---
WOUND CARE CONSULT: PT NOTED TO HAVE FOOT ISSUES (CALLUS AND TOENAIL DEFORMITY) WELL SACRAL SCARRING, PRESENT ON ADMISSION. PT MOVES ALMOST CONSTANTLY. RECOMMENDATIONS MADE FOR SKIN PROTECTION. DISCUSSED WITH NURSING STAFF. DPM CONSULT WAS REQUESTED FROM DR TORO. WILL SEE PRN. CURRENT BIRSSA SCORE IS 16. MD IN AGREEMENT WITH PLAN OF CARE. Addendum: 11/09/18 at 0954 by HARIS LEES WNDNU Amended: Links added.
--- NOTE | 2018-11-09 10:00 | NUR ---
ICU/RN: WOUND CARE NURSE AT BEDSIDE. WILL FOLLOW ORDERS RECEIVED.
--- NOTE | 2018-11-09 10:45 | NUR ---
ICU/RN: ONE UNIT PRBC INITIATED, TOLERATING WELL, NO S/S OF ADVERSE REACTIONS NOTED. VSS. WILL CONTINUE TO MONITOR
[2018-11-09] MEDS ORDERED: K PHOS NEUTRAL 250 MG TABLET PO ONE (11:00)
[2018-11-09] MEDS ORDERED: PIPERACILLIN /TAZOBACTAM 3.375 G in IV D5W 50 ML IV ONE (11:00)
[2018-11-09] MEDS: SOD FERRIC GLUC 125 MG in IV NS 0.9% 100 ML IV SCH (16:26)
[2018-11-09] MEDS: PIPERACILLIN /TAZOBACTAM 3.375 G in IV D5W 100 ML IV SCH (16:38)
--- NOTE | 2018-11-09 18:58 | NUR ---
ICU/RN: PER GI MD, PT WILL HAVE COLONOSCOPY AND EGD IN AM. CONSENT IN CHART. PT WILL START PREP AT 2000, NPO POST MIDNIGHT. WILL ENDORSE TO NIGHT NURSE.
--- NOTE | 2018-11-09 19:13 | NUR ---
ICU/RN: ENDING NOTES,AM BEDSIDE REPORT ENDORSED TO NIGHT NURSE FOR MELLISSA. PT AAOX3. ON ROOM AIR, NO DISTRESS. SINUS ON TELE. VSS. PT SCHEDULED FOR PROCEDURE IN AM, CONSENT IN CHART. ALL NEEDS ATTENDED TO, SAFETY MEASURES TAKEN, BED IN LOW POSITION, SIDE RAILS UP, CALL LIGHT WITHIN REACH. WILL START GOLYTELY AT 1999. URINAL AT BEDSIDE.
[2018-11-09] MEDS ORDERED: PEG 3350/NA SULF,BICARB,CL/KCL 4,000 ML BOTTLE PO ONE (20:00)
--- NOTE | 2018-11-09 20:00 | NUR ---
Received patient AAOX3.VS stable.SR per tele monitoring.Respiration even and unlabored. On RA SPO2 93%.Denies pain or sob.On clear liquid diet.NPO post MN for EGD and Colonoscopy in AM.Consent signed.Bowel prep with golyte in progress.Aspiration precaution observed. Voiding per urinal.Safety precaution implemented.Call light at bedside.Continue monitoring.
[2018-11-10] VITALS (13 sets, daily range): BP systolic 99–133; BP diastolic 38–80
--- NOTE | 2018-11-10 | NUR ---
Patient tolerating golytely.With 2 large liquid stools with sediments.Kept clean and dry. Bed bath rendered.Complete linens changed.
[2018-11-10] MEDS: ALBUTEROL FS 2.5 MG/3 ML VIAL.NEB NEB SCH ×4 (01:42→19:27)
[2018-11-10] MEDS: IPRATROPIUM NEB FS 0.5 MG/2.5 ML AMPUL.NEB NEB SCH ×4 (01:43→19:27)
[2018-11-10 04:03] LABS: BASOPHILS % (AUTO) 0.1 % (0.0-2.0); HEMATOCRIT 26 % (39-51); HEMOGLOBIN 8.3 g/dL (13.5-17.5); LYMPHOCYTES # (AUTO) 0.9 /CMM (0.8-4.8); LYMPHOCYTES % (AUTO) 9.4 % (20.0-44.0); MEAN CORPUSCULAR HGB CONC 33 g/dl (31.0-36.0); MEAN CORPUSCULAR VOLUME 76 fL (80-96); MONOCYTES # (AUTO) 0.7 /CMM (0.1-1.30); NEUTROPHILS % (AUTO) 83.5 % (43.0-81.0); PLATELET COUNT (AUTO) 159 /CMM (150-450); RED BLOOD CELL COUNT(AUTO) 3.36 MIL/uL (4.5-6.0); WHITE BLOOD COUNT (AUTO) 9.5 K/uL (4.3-11.0)
[2018-11-10 04:20] LABS: CALCIUM, SERUM 8.4 mg/dL (8.5-10.1); CREATININE 0.6 mg/dL (0.6-1.3)
[2018-11-10 04:21] LABS: BILIRUBIN,TOTAL 0.4 mg/dL (0.2-1.0); MAGNESIUM 1.8 mg/dL (1.8-2.4); PHOSPHORUS 1.7 mg/dL (2.5-4.9); TOTAL PROTEIN, SERUM 5.4 g/dL (6.4-8.2)
[2018-11-10 04:42] LABS: POTASSIUM 2.5 mmol/L (3.5-5.1)
--- NOTE | 2018-11-10 06:00 | NUR ---
Patient resting.VSS.SR.Completed golytely with good results.BM total of 3 large liquid stool. No active bleeding noted.Last one clear yellow with some sediments.Kept clean and dry. Turned self in bed.Denies pain,sob,nausea or vomiting.Kept comfortable.
[2018-11-10] MEDS ORDERED: POTASSIUM CL. PREMIX PERIPHER. 50 ML IV SCH ×2 (06:30→06:50)
--- NOTE | 2018-11-10 06:40 | NUR ---
AM lab resulted K+ 2.5 called to Adriel GOMEZ with orders received and carried out. To received KCL 40 meq IVPB.First bag 10 meq infusing.Will endorse to day shift for MELLISSA.
[2018-11-10] MEDS ORDERED: POTASSIUM PHOSPHATE MM 15 MMOL in IV D5W 250 ML IV SCH (07:00)
--- NOTE | 2018-11-10 07:45 | NUR ---
ICU/RN: Pt c/o discomfort from IV potassium replacement. 100 meqs of KCL pending. RN to request midline insertion.
--- NOTE | 2018-11-10 08:00 | NUR ---
ICU/RN: Dr Delvalle at bedside for anesthesiology. Per MD, pt is not stable for procedure. MD to discuss case with Dr Flores.
[2018-11-10] MEDS: ENSURE ENLIVE 237 ML LIQUID (VANILLA) PO SCH ×3 (08:09→16:22)
[2018-11-10] MEDS: PANTOPRAZOLE 40 MG TABLET.DR PO SCH (08:09)
[2018-11-10] MEDS: PIPERACILLIN /TAZOBACTAM 3.375 G in IV D5W 100 ML IV SCH ×4 (08:09→16:22)
[2018-11-10] MEDS: methylPREDNISolone SOD SUCC 125 MG/2ML VIAL IV SCH ×3 (08:09→16:22)
--- NOTE | 2018-11-10 08:30 | NUR ---
ICU/RN: Dr Valverde aware of procedure cancelation, with orders to change K replacement to PO.
[2018-11-10] MEDS: POTASSIUM CHLORIDE 20 MEQ TAB.PRT.SR PO SCH ×5 (08:44→13:00)
--- NOTE | 2018-11-10 09:05 | NUR ---
ICU/RN: Pt s/b Dr Flores. Orders for clear liquid diet noted. No s/s of active bleeding. Hgb at 8.3 today.
[2018-11-10] MEDS: POTASSIUM PHOSPHATE MM 7.5 MMOL in IV D5W 100 ML IV SCH ×2 (09:06→11:54)
--- NOTE | 2018-11-10 10:00 | NUR ---
ICU/RN: Pt transferred to [facility] in stable condition, no distress noted. Bedside report/update given to MADELEINE Parr.
--- NOTE | 2018-11-10 10:30 | NUR ---
[facility]/RN NOTES RECEIVED PATIENT FORM ICU. PATIENT WAS ACCOMPANIED BY 2 ICU NURSES VIA BED. PATIENT IN BED AWAKE, ALERT AND ABLE TO MAKE NEEDS KNOWN. NO PAIN OR ACUTE DISTRESS AT THIS TIME. RESPIRATION EVEN AND UNLABORED. SKIN IS DRY WARM TO TOUCH. PATIENT NOTED WITH IV ACCESS ON RIGHT HAND AND RIGHT FOREARM. INTACT AND PATENT. FLUSHING WELL. NO S/S OF INFECTION OR INFILTRATION. ALL NEEDS ANTICIPATED. KEPT CLEAN AND DRY. CALL LIGHT WITHIN REACHED. SAFETY MAINTAINED. BED LOCKED AND IN LOWEST POSITION. WILL CONTINUE TO MONITOR CLOSELY.
[2018-11-10] MEDS: SOD FERRIC GLUC 125 MG in IV NS 0.9% 100 ML IV SCH (14:08)
[2018-11-10] MEDS: FUROSEMIDE 40 MG/4 ML VIAL IV SCH ×2 (14:09→17:42)
--- NOTE | 2018-11-10 19:25 | NUR ---
[facility]/RN NOTES PATIENT RECEIVED IN BED, ALERT AND AWAKE, FAMILY AT BED SIDE.. NO S/S OF ACUTE DISTRESS NOTED, RESPIRATION EVEN AND UNLABORED. NO SOB NOTED. PATIENT A/O X 3, DENIES ANY PAIN OR DISCOMFORT AT THIS TIME. PATIENT NOTED WITH IV ACCESS ON RIGHT HAND AND RIGHT FOREARM. INTACT AND PATENT, FLUSHING WELL. NO S/S OF INFECTION OR INFILTRATION. SAFETY MAINTAINED BED AT THE LOWEST LOCKED POSITION. PATIENT ON TELE MONITORING WITH SINUS RHYTHM ON MONITOR. KEPT CLEAN AND DRY. CALL LIGHT WITHIN REACHED. WILL CONTINUE TO MONITOR PATIENT PER PLAN OF CARE. .
--- NOTE | 2018-11-10 19:32 | NUR ---
[facility]/RN CLOSING NOTES PATIENT CONTINUES TO REMAIN IN STABLE CONDITION THROUGHOUT THE SHIFT. PROVIDED COMFORT AND SAFETY. PATIENT NOTED WITH IV ACCESS ON RIGHT HAND AND RIGHT FOREARM. INTACT AND PATENT. FLUSHING WELL. NO S/S OF INFECTION OR INFILTRATION. ALL NEEDS ANTICIPATED. KEPT CLEAN AND DRY. CALL LIGHT WITHIN REACHED. SAFETY MAINTAINED. BED LOCKED AND IN LOWEST POSITION. WILL CONTINUE TO MONITOR CLOSELY. ENDORSED TO PM NURSE FOR MELLISSA.
--- NOTE | 2018-11-10 19:45 | NUR ---
[facility] RN OPENING NOTES RECEIVED PATIENT IN BED, AWAKE, A/OX3. ON TELE MONITOR SR WITH HR 80'S. ON OXYGEN 2L VIA NC, TOLERATING WELL, NO RESPIRATORY DISTRESS NOTED. DENIES ANY PAIN OR DISCOMFORT AT THIS TIME. PATIENT IV SITES ON RIGHT HAND AND RIGHT FOREARM, INFILTRATION NOTED ON BOTH SITES, WILL INSERT NEW IV SITE. URINAL AT BEDSIDE AND EASY TO REACH. SAFETY MEASURES IN PLACE AND MAINTAINED, BED LOCKED AND IN LOWEST POSITION, CALL LIGHT WITHIN REACH, SIDE RAILS UP X2, HOB ELEVATED. WILL CONTINUE TO MONITOR PATIENT CLOSELY.
--- NOTE | 2018-11-10 22:01 | NUR ---
REPORT GIVEN TO BLANCHE
--- NOTE | 2018-11-10 22:28 | NUR ---
[facility]/RN NOTES PATIENT RECEIVED IN BED, ALERT AND AWAKE, FAMILY AT BED SIDE.. NO S/S OF ACUTE DISTRESS NOTED, RESPIRATION EVEN AND UNLABORED. NO SOB NOTED. PATIENT A/O X 3, DENIES ANY PAIN OR DISCOMFORT AT THIS TIME. PATIENT NOTED WITH IV ACCESS ON RIGHT HAND AND RIGHT FOREARM. INTACT AND PATENT, FLUSHING WELL. NO S/S OF INFECTION OR INFILTRATION. SAFETY MAINTAINED BED AT THE LOWEST LOCKED POSITION. PATIENT ON TELE MONITORING WITH SINUS RHYTHM ON MONITOR. KEPT CLEAN AND DRY. CALL LIGHT WITHIN REACHED. WILL CONTINUE TO MONITOR PATIENT PER PLAN OF CARE. . Addendum: 11/10/18 at 2234 by THERESA GLASS RN PLEASE DISREGARD. CHARTED BY ERROR
[2018-11-10] MEDS: ATORVASTATIN 10 MG TABLET PO SCH (22:45)
[2018-11-11] VITALS: BP 136/82
[2018-11-11] MEDS: methylPREDNISolone SOD SUCC 40 MG/ML VIAL IV SCH ×4 (01:10→16:42)
[2018-11-11] MEDS: PIPERACILLIN /TAZOBACTAM 3.375 G in IV D5W 100 ML IV SCH ×3 (01:12→16:42)
--- NOTE | 2018-11-11 01:12 | NUR ---
[facility] RN NOTES ADMINISTERED SOLUMEDROL AND ZOSYN VIA IV LATE D/T PATIENT IV SITES WERE BOTH INFILTRATED AND PATIENT IS HARD STICK. INSERTED NEW IV ON LEFT FA 22G FLUSHING AND PATENT, SITE C/D/I, ZOSYN NOW RUNNING ORDERED, NO INFILTRATION NOTED.
[2018-11-11] MEDS: ALBUTEROL FS 2.5 MG/3 ML VIAL.NEB NEB SCH ×4 (02:01→19:58)
[2018-11-11] MEDS: IPRATROPIUM NEB FS 0.5 MG/2.5 ML AMPUL.NEB NEB SCH ×4 (02:01→19:59)
[2018-11-11 04:00] VITALS: BP 129/46
[2018-11-11 07:24] LABS: BASOPHILS % (AUTO) 0.1 % (0.0-2.0); HEMATOCRIT 31 % (39-51); HEMOGLOBIN 9.6 g/dL (13.5-17.5); LYMPHOCYTES # (AUTO) 0.2 /CMM (0.8-4.8); LYMPHOCYTES % (AUTO) 3.3 % (20.0-44.0); MEAN CORPUSCULAR HGB CONC 31 g/dl (31.0-36.0); MEAN CORPUSCULAR VOLUME 78 fL (80-96); MONOCYTES # (AUTO) 0.4 /CMM (0.1-1.30); MONOCYTES % (AUTO) 6.2 % (2.0-12.0); NEUTROPHILS # (AUTO) 5.3 /CMM (1.8-8.9); NEUTROPHILS % (AUTO) 90.4 % (43.0-81.0); PLATELET COUNT (AUTO) 197 /CMM (150-450); RED BLOOD CELL COUNT(AUTO) 3.98 MIL/uL (4.5-6.0); WHITE BLOOD COUNT (AUTO) 5.9 K/uL (4.3-11.0)
--- NOTE | 2018-11-11 07:24 | NUR ---
[facility] RN CLOSING NOTES PATIENT IN BED, AWAKE, A/OX3. ON TELE MONITOR SR WITH HR 80'S. ON OXYGEN 2L VIA NC, TOLERATING WELL, NO RESPIRATORY DISTRESS NOTED. DENIES ANY PAIN OR DISCOMFORT AT THIS TIME. IV SITE LEFT FA 22G, FLUSHING AND PATENT, SITE C/D/I. URINAL AT BEDSIDE AND EASY TO REACH. SAFETY MEASURES IN PLACE AND MAINTAINED, BED LOCKED AND IN LOWEST POSITION, CALL LIGHT WITHIN REACH, SIDE RAILS UP X2, HOB ELEVATED. ALL MD ORDERS ATTENDED. ENDORSED TO AM RN FOR MELLISSA.
[2018-11-11 07:52] LABS: ALBUMIN 2.2 g/dL (3.4-5.0); BILIRUBIN,TOTAL 0.3 mg/dL (0.2-1.0); CALCIUM, SERUM 8.7 mg/dL (8.5-10.1); CREATININE 0.8 mg/dL (0.6-1.3); MAGNESIUM 1.8 mg/dL (1.8-2.4); PHOSPHORUS 2.2 mg/dL (2.5-4.9); POTASSIUM 3.8 mmol/L (3.5-5.1); TOTAL PROTEIN, SERUM 6.2 g/dL (6.4-8.2)
[2018-11-11 08:00] VITALS: BP 113/48
[2018-11-11] MEDS: PANTOPRAZOLE 40 MG TABLET.DR PO SCH (08:18)
[2018-11-11] MEDS: ENSURE ENLIVE 237 ML LIQUID (VANILLA) PO SCH ×3 (08:20→16:42)
[2018-11-11] MEDS ORDERED: K PHOS NEUTRAL 250 MG TABLET PO ONE (09:30)
--- NOTE | 2018-11-11 09:37 | NUR ---
RN NOTE 0715: Received patient awake, A/ox3. On 2LPM of O2 via NC, tolerated. No respiratory distress noted at this time. No c/o discomfort. PIV intact. 0815: S/E by Dr. Valverde, with order to may transfer care to med surg, CN aware. 0830: Titrated off O2 supply, placed on O2 monitor, tolerated so far. Will continue. Eating breakfast, tolerated diet. 0930: S/E by Dr. Power, with order of labs tomorrow, to replace Phos. No any significant changes noted at this time. Will continue to monitor.
[2018-11-11 12:00] VITALS: BP 116/56
[2018-11-11] MEDS ORDERED: K PHOS NEUTRAL 250 MG TABLET PO SCH (13:00)
[2018-11-11] MEDS: SOD FERRIC GLUC 125 MG in IV NS 0.9% 100 ML IV SCH (14:59)
--- NOTE | 2018-11-11 15:05 | NUR ---
RN NOTE S/E by Dr. Maldonado with order of US thyroid, US tech at bedside, awaiting for result.
[2018-11-11 16:00] VITALS: BP 111/55
--- NOTE | 2018-11-11 18:18 | NUR ---
RN NOTE No any significant changes. PIV intact. Diet tolerated. Kept clean, warm and dry. Needs attended. Kept call light at reach. No SOB, remained on 2LPM of O2 via NC. PT eval done, on baseline, wheelchair bound per PT and patient.
--- NOTE | 2018-11-11 19:25 | NUR ---
MS/RN NOTES PATIENT RECEIVED IN BED, ALERT AND AWAKE, NO S/S OF ACUTE DISTRESS NOTED, RESPIRATION EVEN AND UNLABORED. NO SOB NOTED. PATIENT A/O X 3, DENIES ANY PAIN OR DISCOMFORT AT THIS TIME. IV ACCESS ON LEFT FOREARM, INTACT AND PATENT, FLUSHING WELL NO S/S OF INFECTION OR INFILTRATION. SAFETY MAINTAINED BED AT THE LOWEST LOCKED POSITION. KEPT CLEAN AND DRY. CALL LIGHT WITHIN REACHED. WILL CONTINUE TO MONITOR PATIENT PER PLAN OF CARE. .
[2018-11-11 20:00] VITALS: BP 141/56
[2018-11-11] MEDS: ATORVASTATIN 10 MG TABLET PO SCH (22:09)
[2018-11-12] VITALS: BP 121/64
[2018-11-12] MEDS: PIPERACILLIN /TAZOBACTAM 3.375 G in IV D5W 100 ML IV SCH ×2 (00:19→08:42)
[2018-11-12] MEDS: IPRATROPIUM NEB FS 0.5 MG/2.5 ML AMPUL.NEB NEB SCH ×3 (01:25→13:15)
[2018-11-12] MEDS: ALBUTEROL FS 2.5 MG/3 ML VIAL.NEB NEB SCH ×3 (01:25→13:15)
[2018-11-12 04:00] VITALS: BP 138/77
[2018-11-12 07:01] LABS: BASOPHILS % (AUTO) 0.1 % (0.0-2.0); HEMATOCRIT 29 % (39-51); HEMOGLOBIN 9.1 g/dL (13.5-17.5); LYMPHOCYTES # (AUTO) 0.6 /CMM (0.8-4.8); LYMPHOCYTES % (AUTO) 7.4 % (20.0-44.0); MEAN CORPUSCULAR HGB CONC 32 g/dl (31.0-36.0); MEAN CORPUSCULAR VOLUME 77 fL (80-96); MONOCYTES # (AUTO) 0.7 /CMM (0.1-1.30); MONOCYTES % (AUTO) 8.6 % (2.0-12.0); NEUTROPHILS # (AUTO) 6.7 /CMM (1.8-8.9); NEUTROPHILS % (AUTO) 83.9 % (43.0-81.0); PLATELET COUNT (AUTO) 227 /CMM (150-450); RED BLOOD CELL COUNT(AUTO) 3.74 MIL/uL (4.5-6.0)
[2018-11-12 07:33] LABS: CALCIUM, SERUM 9.2 mg/dL (8.5-10.1); CREATININE 0.6 mg/dL (0.6-1.3); PHOSPHORUS 3.1 mg/dL (2.5-4.9); POTASSIUM 3.8 mmol/L (3.5-5.1)
--- NOTE | 2018-11-12 07:56 | NUR ---
MS/RN NOTES PATIENT RECEIVED IN BED, ALERT AND AWAKE, NO S/S OF ACUTE DISTRESS NOTED, RESPIRATION EVEN AND UNLABORED. NO SOB NOTED. PATIENT A/O X 3, DENIES ANY PAIN OR DISCOMFORT AT THIS TIME. IV ACCESS ON LEFT FOREARM, INTACT AND PATENT, FLUSHING WELL NO S/S OF INFECTION OR INFILTRATION. SAFETY MAINTAINED BED AT THE LOWEST LOCKED POSITION. KEPT CLEAN AND DRY. CALL LIGHT WITHIN REACHED. WILL CONTINUE TO MONITOR PATIENT PER PLAN OF CARE. PLAN OF CARE DISCUSSED WITH PATIENT. WILL CONT TO MONITOR CLOSELY
[2018-11-12 08:00] VITALS: BP 114/51
[2018-11-12] MEDS ORDERED: POTA10TA PO (08:35)
[2018-11-12] MEDS ORDERED: IPRA0.2S9 NEB ×2 (08:35)
[2018-11-12] MEDS ORDERED: LEVO500T75 PO (08:35)
[2018-11-12] MEDS ORDERED: ALBUT2 NEB ×2 (08:35)
[2018-11-12] MEDS ORDERED: METR500T PO (08:35)
[2018-11-12] MEDS ORDERED: FERR325T23 PO (08:35)
[2018-11-12] MEDS ORDERED: FURO-144 PO (08:35)
[2018-11-12] MEDS ORDERED: PRED20TA PO (08:38)
[2018-11-12] MEDS: FUROSEMIDE 40 MG/4 ML VIAL IV SCH ×2 (08:42→11:49)
[2018-11-12] MEDS: methylPREDNISolone SOD SUCC 40 MG/ML VIAL IV SCH (08:42)
[2018-11-12] MEDS: PANTOPRAZOLE 40 MG TABLET.DR PO SCH (08:42)
[2018-11-12] MEDS ORDERED: ATOR10TA PO (08:43)
[2018-11-12] MEDS: ENSURE ENLIVE 237 ML LIQUID (VANILLA) PO SCH ×2 (08:49→13:00)
--- NOTE | 2018-11-12 09:30 | NUR ---
MS RN NOTE SEEN Y DR PAREDES WITH ORDER TO DISCHARGE TO SNF , UNABLE TO CALL SON PHON IS NOT ANSWERING
[2018-11-12 12:00] VITALS: BP 106/47
--- NOTE | 2018-11-12 13:00 | NUR ---
MS SALVADOR NOTE REPORT GIVEN TO JUMANA SALVADOR FROM [facility] ,FL TO LEAVE HL ON LT UPPER ARM ,PATIENT WILL HAVE IV ATB AT [facility] Addendum: 11/12/18 at 1527 by KHANG ROSALES RN LT LOWER ARM HL OK TO LEAVE FOR SNF
--- NOTE | 2018-11-12 15:00 | NUR ---
MS RN NOTE AMBULANCE ARRIVED, REPORT GIVEN , LT LOWER ARM HL INTACT ,NO S\S INFECTION WENT TO SNF WITH STABLE CONDITION
[2018-11-13 06:06] LABS: *SPE A/G RATIO 0.9 (0.7-1.7); *SPE ALBUMIN 2.6 g/dL (2.9-4.4); *SPE ALPHA-1-GLOBULIN 0.4 g/dL (0.0-0.4); *SPE ALPHA-2-GLOBULIN 0.7 g/dL (0.4-1.0); *SPE BETA GLOBULIN 0.8 g/dL (0.7-1.3); *SPE GLOBULIN, TOTAL 2.9 g/dL (2.2-3.9); *SPE M-SPIKE Not Observed g/dL (Not Observed)
== END 2018-11-12 14:55 | DRG 177 ==
LOC: ER 15:56 → ICU 17:07 → TELE-TD 11-10 10:00 → MEDSG1 11-11 09:52
PROVIDERS: ADMIT Hospitalist; ATTEND Internal Medicine
PROC: 5A09357 Assistance with Respiratory Ventilation, Less than 24 Consecutive Hours, Continuous Positive Airway Pressure (ICD-10-PCS; principal; 2018-11-07)
PROC: 30233N1 Transfusion of Nonautologous Red Blood Cells into Peripheral Vein, Percutaneous Approach (ICD-10-PCS; 2018-11-08)
DX: J69.0 Pneumonitis due to inhalation of food and vomit (principal); J96.01 Acute respiratory failure with hypoxia; G93.41 Metabolic encephalopathy; E43 Unspecified severe protein-calorie malnutrition; N17.0 Acute kidney failure with tubular necrosis; I50.23 Acute on chronic systolic (congestive) heart failure; D68.59 Other primary thrombophilia; E87.2 Acidosis; J98.11 Atelectasis; R64 Cachexia; Z68.1 Body mass index [BMI] 19.9 or less, adult; J44.1 Chronic obstructive pulmonary disease with (acute) exacerbation; I11.0 Hypertensive heart disease with heart failure; D69.6 Thrombocytopenia, unspecified; E78.5 Hyperlipidemia, unspecified; E87.6 Hypokalemia; E83.42 Hypomagnesemia; F41.9 Anxiety disorder, unspecified; D50.9 Iron deficiency anemia, unspecified; I48.0 Paroxysmal atrial fibrillation; I35.1 Nonrheumatic aortic (valve) insufficiency; I25.10 Atherosclerotic heart disease of native coronary artery without angina pectoris; L84 Corns and callosities; Z99.81 Dependence on supplemental oxygen; Z87.891 Personal history of nicotine dependence; E83.39 Other disorders of phosphorus metabolism; B35.1 Tinea unguium; M62.50 Muscle wasting and atrophy, not elsewhere classified, unspecified site; I25.2 Old myocardial infarction; I70.0 Atherosclerosis of aorta
CPT/HCPCS: 36415; 36569; 36600; 71045-TC; 76536-TC; 80048-TC; 80053-TC; 80061-TC; 80076-TC; 81000-TC; 82272-TC; 82550-TC; 82570-TC; 82728-TC; 82803-TC; 83540-TC; 83605-TC; 83735-TC; 83880; 84100-TC; 84155; 84155-TC; 84165; 84300-TC; 84439-TC; 84443-TC; 84484-TC; 85025-TC; 85730-TC; 86850-TC; 86921-TC; 87040-TC; 87081-TC; 93307-TC; 94660; 94799-TC; 97112-TC; 97530-TC; 99082-TC; A4216; G0378; J1940; J2543; J2916; J2920; J2930; J3475; J3480; J3490; J7030; J7040; J7050; J7060; P9016-BL

== ENCOUNTER 2019-11-03 18:13 | Inpatient (IN) | payer OTHER, MEDICARE ==
[~2019-11-03] VITALS: Ht 152.4 cm; Wt 41.3 kg
[~2019-11-03 18:13] MED LIST: ALBUT2 NEB; ATOR10TA PO; FERR325T23 PO; FURO-144 PO; IPRA0.2S9 NEB; LEVO500T23 PO; METR500T PO; POTA10TA PO; PRED20TA PO
[2019-11-03 18:53] LABS: BASOPHILS % (AUTO) 1.1 % (0.0-2.0); EOSINOPHILS % (AUTO) 4.2 % (0.0-6.0); LYMPHOCYTES # (AUTO) 0.4 /CMM (0.8-4.8); MEAN CORPUSCULAR HGB CONC 28 g/dl (31.0-36.0); MEAN CORPUSCULAR VOLUME 60 fL (80-96); MONOCYTES # (AUTO) 0.6 /CMM (0.1-1.30); MONOCYTES % (AUTO) 17.1 % (2.0-12.0); NEUTROPHILS # (AUTO) 2.4 /CMM (1.8-8.9); NEUTROPHILS % (AUTO) 66.6 % (43.0-81.0); PLATELET COUNT (AUTO) 241 /CMM (150-450); WHITE BLOOD COUNT (AUTO) 3.6 K/uL (4.3-11.0)
--- NOTE | 2019-11-03 18:55 | NUR ---
BRENDA FROM HOME TO ER BED 5. AAOX4. BREATHING RAPID AND SHALLOW. BROUGHT ON FOR SOB OF BREATH X 22 DAYS. PT IS NOTED WITH 02 SAT IN THE LOW 90S, PLACED ON O2 VIA NC @ 4LPM SATTING AT 98%. PT REPORTS COUGH AND CONGESTION. AND HAS BEEN REPORTED TO HAVE ABNORMAL LABS HGB 3.7 AND HCT 14.2. WAS AT THE BEDSIDE FOR EVAL.
[2019-11-03 19:03] LABS: CALCIUM, SERUM 7.8 mg/dL (8.5-10.1); CARBON DIOXIDE 25 mmol/L (21-32); CHLORIDE 102 mmol/L (98-107); GLUCOSE 81 mg/dL (74-106); POTASSIUM 3.8 mmol/L (3.5-5.1); SODIUM SERUM 136 mmol/L (136-145); UREA NITROGEN, BLOOD 7 mg/dL (7-18)
[2019-11-03 19:04] LABS: RED BLOOD CELL COUNT(AUTO) 1.97 MIL/uL (4.5-6.0)
[2019-11-03 19:05] LABS: HEMATOCRIT 12 % (39-51); HEMOGLOBIN 3.2 g/dL (13.5-17.5)
[2019-11-03] MEDS ORDERED: FLUT1DIS3 INH (19:06)
[2019-11-03] MEDS ORDERED: AMIO200T4 PO (19:06)
[2019-11-03] MEDS ORDERED: CHLO500T3 PO (19:06)
[2019-11-03] MEDS ORDERED: OMEP1CAP25 PO (19:06)
[2019-11-03 19:13] LABS: D-DIMER 1.57 mg/L(FEU (0.17-0.50)
[2019-11-03 19:16] LABS: ALANINE AMINOTRANSFERASE 12 U/L (12-78); ALBUMIN 2.7 g/dL (3.4-5.0); ALKALINE PHOSPHATASE 84 U/L (46-116); ASPARTATE AMINOTRANSFERASE 22 U/L (15-37); B-TYPE NATRIURETIC PEPTIDE 884 PG/ML (0-125); BILIRUBIN,DIRECT 0.1 mg/dL (0.0-0.2); BILIRUBIN,TOTAL 0.4 mg/dL (0.2-1.0)
[2019-11-03 19:49] LABS: NEUTROPHILS % (MANUAL) 66 (42-76)
[2019-11-03 19:50] LABS: BAND % (MANUAL) 1 % (0.0-5.0); EOSINOPHILS % (MANUAL) 3 % (0-4); LYMPHOCYTES % (MANUAL) 15 % (16-48); MONOCYTES % (MANUAL) 15 % (0-11.0)
--- NOTE | 2019-11-03 20:15 | NUR ---
CONCEPCION CABEZAS DONE AND SENT TO LAB
--- NOTE | 2019-11-03 21:02 | NUR ---
BLOOD DTRANSFUSION STARTED.
--- NOTE | 2019-11-03 21:18 | NUR ---
15MIN IN FOR BLOOD TRANSFUSION. NO ADVERSE REACTION NOTED. VSS
--- NOTE | 2019-11-03 21:28 | NUR ---
CALLED [facility] FOR PANEL ADMISSION. DR. GUTIERREZ PAGED. WAITING FOR CALL BACK
--- NOTE | 2019-11-03 22:18 | NUR ---
BLOOD TRANSFUSION COMPLETED. NO ADVERSE REACTION NOTED.
--- NOTE | 2019-11-03 22:20 | NUR ---
REPORT GIVEN TO MADELEINE THOMPSON FOR MELLISSA
--- NOTE | 2019-11-03 22:45 | NUR ---
RN NOTES ADMITTED A 78 Y/O MALE A/OX4 ABLE TO MAKE NEEDS KNOWN , WITH ADMIITING DX OF SEVERE ANEMIA HGB 3.2 HCT 12,PER ENDORSEMENT IN ER PTS RECEIVED 1 UNIT OF PRBC , ADMISSION ROUTINE ROUTINE CARE RENDERED , BODY CHECK DONE SKIN INTACT , WITH LEFT HAND IV PHERIPHERAL G#20 INTACT AND PATENT.PT IS FULL CODE NKDA ,INFORMED DR GREGORIO RE ADMISSION AWAITING FOR ORDER, V/S STABLE AFEBRILE , KEPT PT DRY WARM COMFORTABLE AND CLEAN ,WILL CONTINUE TO MONITOR PTS.
--- NOTE | 2019-11-03 22:50 | NUR ---
PT TRANSPORTED TO UNIT ON GURNEY WITH EMT AND RN AT BEDSIDE W/ ACLS PROTOCOL. NAD NOTED DURING TRANSPORT.
[2019-11-03 23:00] VITALS: BP 121/56
[2019-11-04] VITALS (18 sets, daily range): BP systolic 99–133; BP diastolic 42–77
[2019-11-04] MEDS ORDERED: Z GUARD REMEDY 2 OZ OINT TP PRN
[2019-11-04] MEDS ORDERED: ONDANSETRON HCL/PF 4 MG/2 ML VIAL IVP PRN
[2019-11-04] MEDS ORDERED: ACETAMINOPHEN 325 MG TABLET PO PRN
[2019-11-04] MEDS: PANTOPRAZOLE 40 MG VIAL IV SCH ×2 (00:22→08:31)
--- NOTE | 2019-11-04 00:43 | NUR ---
HUMAN RESOURCES CLERK NOTES RECIVED ADMISSION ORDER FROM DR GREGORIO , ALL ORDER NOTED AND CARRIED OUT ,TO TRANSFUSED 1 UNIT OF PRBC , PRBC CO;;ECTED FROM ,CHECKED AND VERIFIED WITH CHARGE NURSE ERNESTINA , TRANFUSION BEGIN WITH NO ADVERSE SIDE EFFECT NOTED V/S STABLE AFEBRILE , TRANFUSION ON PROGRESS, WILL CONTINUE TO MONITOR PTS.
--- NOTE | 2019-11-04 02:25 | NUR ---
agent telegrapher notes blood transfusion on progress no sob no distress noted ,no vlad noted v/s stable afebrile ,will continue to monitor pts.
--- NOTE | 2019-11-04 04:13 | NUR ---
cable television access coordinator notes blood transfusion ended at 411 no ase noted , no sob no distress noted all needs attended too call light within reach,will continue to monitor pts.
--- NOTE | 2019-11-04 06:12 | NUR ---
MOBILE EQUIPMENT MECHANIC NOTES PT IN BED AWAKE A/O X4 NO SOB NO DISTRESS NOTED REMAINS ON 4 LITERS OF O2 VIA NC SATING 98%WILL ENDORSE PT TO NEXT RN DAY SHIFT FOR CONTINUITY OF CARE..
--- NOTE | 2019-11-04 07:41 | NUR ---
FINE ARTS CHAIR NOTE PATIENT IN BED , ALL NEEDS ATTENDED, ON 4L NC, NO SOB NOTED AT THIS TIME , ON TELE MONITOR SR HR 70 , LT HAND HL INTACT, NO S\S INFECTION NOTED , BED IN LOWEST AND LOCKED POSITION, CALL LIGHT WITHIN REACH , WILL CONT TO MONITOR
[2019-11-04 08:49] LABS: BASOPHILS % (AUTO) 1.1 % (0.0-2.0); CALCIUM, SERUM 7.6 mg/dL (8.5-10.1); CREATININE 0.8 mg/dL (0.6-1.3); EOSINOPHILS % (AUTO) 2.7 % (0.0-6.0); HEMATOCRIT 21 % (39-51); LYMPHOCYTES # (AUTO) 1.7 /CMM (0.8-4.8); LYMPHOCYTES % (AUTO) 45.6 % (20.0-44.0); MAGNESIUM 2.1 mg/dL (1.8-2.4); MEAN CORPUSCULAR HGB CONC 31 g/dl (31.0-36.0); MEAN CORPUSCULAR VOLUME 69 fL (80-96); MONOCYTES # (AUTO) 0.4 /CMM (0.1-1.30); MONOCYTES % (AUTO) 11.4 % (2.0-12.0); NEUTROPHILS # (AUTO) 1.5 /CMM (1.8-8.9); NEUTROPHILS % (AUTO) 39.2 % (43.0-81.0); PHOSPHORUS 2.7 mg/dL (2.5-4.9); PLATELET COUNT (AUTO) 188 /CMM (150-450); POTASSIUM 3.9 mmol/L (3.5-5.1); RED BLOOD CELL COUNT(AUTO) 3.06 MIL/uL (4.5-6.0); WHITE BLOOD COUNT (AUTO) 3.8 K/uL (4.3-11.0)
[2019-11-04 08:55] LABS: THYROID STIMULATING HORMONE 0.968 uIU/mL (0.358-3.74)
[2019-11-04 09:05] LABS: HEMOGLOBIN 6.6 g/dL (13.5-17.5)
[2019-11-04 09:08] LABS: IRON, SERUM 303 ug/dl (50-175); TOTAL IRON BINDING CAPACITY 326 ug/dl (250-450)
--- NOTE | 2019-11-04 10:45 | NUR ---
BREAD DOUGH MIXER NOTE SPOKE WITH DR DEWEY PARRA TO TRANSFUSE I UNIT PRBC, WILL F\U
--- NOTE | 2019-11-04 13:02 | NUR ---
satellite television installer note 1 unit prbc started to infuse ,no adverse reaction noted
[2019-11-04 13:41] LABS: NEUTROPHILS % (MANUAL) 66 (42-76)
[2019-11-04 13:42] LABS: EOSINOPHILS % (MANUAL) 4 % (0-4); LYMPHOCYTES % (MANUAL) 20 % (16-48); MONOCYTES % (MANUAL) 10 % (0-11.0)
--- NOTE | 2019-11-04 15:30 | NUR ---
senior telecommunications engineer note cont on blood transfusion ,no adverse reaction noted will f\u
--- NOTE | 2019-11-04 15:46 | NUR ---
METAL TECHNICIAN NOTE 2D ECHO DOING NOW NOT IN DISTRESS
--- NOTE | 2019-11-04 16:27 | NUR ---
PRODUCT COMMUNICATIONS MANAGER NOTE 1 UNIT PRBC COMPLETED ,NO ADVERSE REACTION NOTED
--- NOTE | 2019-11-04 19:40 | NUR ---
MANAGER EXPORT OPENING NOTES RECEIVED PATIENT FROM MORNING SHIFT, ALERT AND ORIENTED X 3. VERBALLY RESPONSIVE AND ABLE TO FOLLOW DIRECTIONS. BREATHING REGULAR AND UNLABORED ON OXYGEN AT 4L/MIN. LEFT HAND G20 IV LINE PATENT AND FLUSHING WELL WITH NO S/S INFILTRATION NOTED. ON CARDIAC MONITORING WITH NSR AT 77bpm. DENIES SUICIDAL IDEATION OR PAIN/DISCOMFORT AT THIS TIME. BED LOW AND LOCKED ON SEMI FOWLERS POSITION. CALL LIGHT IN REACH. WILL CONTINUE TO MONITOR.
--- NOTE | 2019-11-04 20:00 | NUR ---
SLUDGE FILTRATION ATTENDANT NOTES S/P BLOOD TRANSFUSION, NO REACTIONS NOTED AT THIS TIME. WILL CONTINUE TO MONITOR.
[2019-11-05] VITALS (11 sets, daily range): BP systolic 114–133; BP diastolic 49–82
--- NOTE | 2019-11-05 06:50 | NUR ---
GLUE MAKER CLOSING NOTES PATIENT IN BED, ALERT AND ORIENTED X 3. AFEBRILE WITH NO S/S OF DISTRESS OBSERVED. LEFT HAND G20 IV LINE PATENT AND FLUSHING WELL. MAINTAINED ON CARDIAC MONITORING WITH NSR. NO COMPLAINTS OF PAIN/DISCOMFORT REPORTED AT THIS TIME. BED LOW AND LOCKED ON SEMI FOWLERS POSITION. CALL LIGHT IN REACH. WILL ENDORSE TO MORNING SHIFT FOR MELLISSA.
--- NOTE | 2019-11-05 07:30 | NUR ---
RN OPENING NOTE RECEIVED PATIENT IN BED, ALERT AND ORIENTED X 3. AFEBRILE. NO CARDIAC OR RESPIRATORY DISTRESS NOTED. NO SOB NOTED. SATURATING WELL ON 4L OF O2 VIA NC. IV ACCESS NOTED ON LEFT HAND G20 IV LINE INTACT AND PATENT AND FLUSHING WELL.ON CARDIAC TELE MONITOR SHOWING NSR. NO COMPLAINTS OF PAIN/DISCOMFORT REPORTED AT THIS TIME. SAFETY PRECAUTIONS IN PLACE. BED LOW AND LOCKED ON SEMI FOWLERS POSITION. CALL LIGHT IN REACH. WILL CONT TO MONITOR. .
[2019-11-05 08:05] LABS: CALCIUM, SERUM 7.8 mg/dL (8.5-10.1); CREATININE 0.7 mg/dL (0.6-1.3); MAGNESIUM 2.6 mg/dL (1.8-2.4); PHOSPHORUS 2.2 mg/dL (2.5-4.9); POTASSIUM 4.4 mmol/L (3.5-5.1)
[2019-11-05] MEDS: PANTOPRAZOLE 40 MG VIAL IV SCH (08:12)
[2019-11-05] MEDS: HYDROCODONE/APAP 5/325MG TABLET PO PRN ×2 (08:13→16:07)
[2019-11-05 08:26] LABS: BASOPHILS # (AUTO) 0.1 /CMM (0.0-0.2); BASOPHILS % (AUTO) 1.2 % (0.0-2.0); EOSINOPHILS % (AUTO) 2.6 % (0.0-6.0); HEMATOCRIT 30 % (39-51); HEMOGLOBIN 9.7 g/dL (13.5-17.5); LYMPHOCYTES # (AUTO) 1.8 /CMM (0.8-4.8); LYMPHOCYTES % (AUTO) 34.2 % (20.0-44.0); MEAN CORPUSCULAR HGB CONC 32 g/dl (31.0-36.0); MEAN CORPUSCULAR VOLUME 72 fL (80-96); MONOCYTES # (AUTO) 0.6 /CMM (0.1-1.30); MONOCYTES % (AUTO) 10.3 % (2.0-12.0); NEUTROPHILS # (AUTO) 2.8 /CMM (1.8-8.9); NEUTROPHILS % (AUTO) 51.7 % (43.0-81.0); PLATELET COUNT (AUTO) 182 /CMM (150-450); RED BLOOD CELL COUNT(AUTO) 4.25 MIL/uL (4.5-6.0); WHITE BLOOD COUNT (AUTO) 5.4 K/uL (4.3-11.0)
[2019-11-05 09:09] LABS: LYMPHOCYTES % (MANUAL) 12 % (16-48); MONOCYTES % (MANUAL) 14 % (0-11.0); NEUTROPHILS % (MANUAL) 74 (42-76)
[2019-11-05] MEDS ORDERED: K PHOS NEUTRAL 250 MG TABLET PO ONE (13:00)
--- NOTE | 2019-11-05 13:10 | NUR ---
[facility] LAB CALLED STATED THAT PLASMA IS READY. [facility] PICKED UP FROM LAB.
--- NOTE | 2019-11-05 13:16 | NUR ---
[facility] INFUSION STARTED. VS LOGGED. STABLE. WILL MONITOR FOR REACTIONS.
[2019-11-05] MEDS ORDERED: NEUTRA PHOS 1 POWD.PACKET PO ONE (13:30)
--- NOTE | 2019-11-05 13:30 | NUR ---
[facility] NO TRANSFUSION REACTION NOTED. VS STABLE AND LOGGED.
--- NOTE | 2019-11-05 16:00 | NUR ---
[facility] TRANSFUSION COMPLETED. TOLERATED WELL. NO REACTIONS NOTED VS STABLE. IV ACCESS INTACT AND PATENT.
--- NOTE | 2019-11-05 19:30 | NUR ---
RN CLOSING NOTES PATIENT IN BED, ALERT AND ORIENTED X 3. AFEBRILE. NO CARDIAC OR RESPIRATORY DISTRESS NOTED. NO SOB NOTED. SATURATING WELL ON 4L OF O2 VIA NC. IV ACCESS NOTED ON LEFT HAND G20 IV LINE INTACT AND PATENT AND FLUSHING WELL.ON CARDIAC TELE MONITOR SHOWING NSR. S/P [facility] TRANSFUSION 1 UNIT GIVEN TODAY PER MD ORDERS. NO ASE NOTED FROM TRANSFUSION. NO COMPLAINTS OF PAIN/DISCOMFORT REPORTED AT THIS TIME. SAFETY PRECAUTIONS IN PLACE. BED LOW AND LOCKED ON SEMI FOWLERS POSITION. CALL LIGHT IN REACH. WILL CONT TO MONITOR.
--- NOTE | 2019-11-05 20:00 | NUR ---
RN OPENING NOTE RECEIVED PATIENT IN BED A/A/OX 3. PT ON 4 L VIA NC SATING 100%.PT HAS UNLABORED BREATHING .PT ON TELE MONITOR SHOWING SR AT 70s. PT HAS IV ACCESS ON LEFT HAND G20 INTACT AND PATENT AND FLUSHES WELL. SAFETY MEASURES IN PLACE. BED AT LOWEST POSITION AND LOCKED , CALL LIGHT IN REACH, SIDE RAILS UP X2.
[2019-11-06] VITALS: BP 128/57
[2019-11-06] MEDS: HYDROCODONE/APAP 5/325MG TABLET PO PRN (01:27)
[2019-11-06 04:00] VITALS: BP 128/55
--- NOTE | 2019-11-06 07:17 | NUR ---
RN CLOSING NOTE PT REMAINED STABLE DURING MY SHIFT, REPORT GIVEN TO INCOMING SHIFT FOR MELLISSA.
[2019-11-06 07:24] LABS: BASOPHILS # (AUTO) 0.1 /CMM (0.0-0.2); BASOPHILS % (AUTO) 1.5 % (0.0-2.0); EOSINOPHILS % (AUTO) 2.9 % (0.0-6.0); HEMATOCRIT 29 % (39-51); HEMOGLOBIN 9.1 g/dL (13.5-17.5); LYMPHOCYTES # (AUTO) 1.7 /CMM (0.8-4.8); LYMPHOCYTES % (AUTO) 33.2 % (20.0-44.0); MEAN CORPUSCULAR HGB CONC 32 g/dl (31.0-36.0); MEAN CORPUSCULAR VOLUME 72 fL (80-96); MONOCYTES # (AUTO) 0.6 /CMM (0.1-1.30); MONOCYTES % (AUTO) 12.4 % (2.0-12.0); NEUTROPHILS # (AUTO) 2.6 /CMM (1.8-8.9); PLATELET COUNT (AUTO) 182 /CMM (150-450); RED BLOOD CELL COUNT(AUTO) 3.97 MIL/uL (4.5-6.0); WHITE BLOOD COUNT (AUTO) 5.1 K/uL (4.3-11.0)
[2019-11-06 07:29] LABS: CREATININE 0.7 mg/dL (0.6-1.3); MAGNESIUM 1.9 mg/dL (1.8-2.4); PHOSPHORUS 2.3 mg/dL (2.5-4.9); POTASSIUM 3.7 mmol/L (3.5-5.1)
[2019-11-06] MEDS ORDERED: PANTOPRAZOLE 40 MG TABLET.DR PO SCH (07:30)
[2019-11-06 08:00] VITALS: BP 118/61
[2019-11-06] MEDS: NEUTRA PHOS 1 POWD.PACKET PO SCH ×2 (10:48→17:05)
[2019-11-06 12:00] VITALS: BP 118/61
[2019-11-06 12:56] LABS: EOSINOPHILS % (MANUAL) 4 % (0-4); LYMPHOCYTES % (MANUAL) 14 % (16-48); MONOCYTES % (MANUAL) 15 % (0-11.0); NEUTROPHILS % (MANUAL) 67 (42-76)
[2019-11-06] MEDS ORDERED: SUCR1TAB PO (15:59)
[2019-11-06 16:00] VITALS: BP 118/61
--- NOTE | 2019-11-06 18:33 | NUR ---
rn notes patient awaiting to be picked up right now to go to [facility], no sob noted, patient denies pain at this tiem, VSS. patient has all paperwork with him, nothing missing, all valuables accounted for. Paperwork signed, no further question asked. Awaiting for ambulance to arrive.
--- NOTE | 2019-11-06 18:53 | NUR ---
rn notes patient left at this time
== END 2019-11-06 18:53 ==
LOC: ER 18:18 → TELE-TD 21:14 → TELE1 11-04 02:46 → MEDSG1 11-06 09:00
PROVIDERS: ADMIT Nurse Practitioner Acute Care; ATTEND Nurse Practitioner Acute Care
PROC: 30233N1 Transfusion of Nonautologous Red Blood Cells into Peripheral Vein, Percutaneous Approach (ICD-10-PCS; principal; 2019-11-03)
PROC: 30233K1 Transfusion of Nonautologous Frozen Plasma into Peripheral Vein, Percutaneous Approach (ICD-10-PCS; 2019-11-05)
DX: K74.69 Other cirrhosis of liver (principal); D62 Acute posthemorrhagic anemia; K76.6 Portal hypertension; D68.9 Coagulation defect, unspecified; I48.91 Unspecified atrial fibrillation; I11.0 Hypertensive heart disease with heart failure; Z87.891 Personal history of nicotine dependence; I25.10 Atherosclerotic heart disease of native coronary artery without angina pectoris; K31.89 Other diseases of stomach and duodenum; J44.9 Chronic obstructive pulmonary disease, unspecified; E78.00 Pure hypercholesterolemia, unspecified; E78.5 Hyperlipidemia, unspecified; Z79.51 Long term (current) use of inhaled steroids; Z79.899 Other long term (current) drug therapy; I50.32 Chronic diastolic (congestive) heart failure; D68.59 Other primary thrombophilia; I85.10 Secondary esophageal varices without bleeding; Z86.73 Personal history of transient ischemic attack (TIA), and cerebral infarction without residual deficits; D50.9 Iron deficiency anemia, unspecified; J98.11 Atelectasis
CPT/HCPCS: 36415; 71045-TC; 80048-TC; 80053-TC; 80061-TC; 80076-TC; 82728-TC; 83540-TC; 83605-TC; 83615-TC; 83735-TC; 83880; 84100-TC; 84443-TC; 84484-TC; 85025-TC; 85378-TC; 85652-TC; 85730-TC; 86140-TC; 86850-TC; 87040-TC; 87081-TC; 93307-TC; 94799-TC; C9113; C9803-CS; G0378; J7040; J7050; P9016-BL; P9017-BL